=== PATIENT | female | born 1940 | race Caucasian/White ===

== ENCOUNTER → 2017-01-08 | Outpatient (CLI) | payer OTHER ==
[~2017-01-08] MED LIST: ASPCH81 PO; B SUPREME PO; CALCTAB5 PO; CHOL1CAP30 OG; CHOL400T5 PO; FLAXOIL3 PO; MULT-506 PO; NAPR-1169 PO; TRYP500C2 PO; VITA400C15 PO
--- NOTE | 2017-01-08 16:34 | MAMMOGRAPHY REPORT ---
BILATERAL DIGITAL SCREENING MAMMOGRAM TOMOSYNTHESIS WITH CAD: 01/08/2017 CLINICAL HISTORY: Asymptomatic. Personal history of left breast cancer status post breast conservat ion therapy. TECHNIQUE: Breast tomosynthesis in addition to standard 2D mammography was performed. Current study was also evaluated with a Computer Aided Detection (CAD) system. COMPARISON: Comparison is made to exams dated: 01/03/2016 mammogram, 12/31/2014 mammogram, 06/29/2014 ma mmogram, 12/25/2013 mammogram, 12/22/2013 mammogram, and 12/17/2012 mammogram - [facility]. BREAST COMPOSITION: The tissue of both breasts is heterogeneously dense, which may obscure small ma sses. FINDINGS: There is expected architectural distortion and benign rim calcification in the upper oute r posterior left breast, at the site of prior lumpectomy. No obvious suspicious mass, architectural distortion or cluster of new, suspicious microcalcifications is seen. IMPRESSION: ACR BI-RADS CATEGORY 1: NEGATIVE There is no mammographic evidence of malignancy. A 1 year screening mammogram is recommended. The p atient will receive written notification of the results. Approximately 10% of breast cancers are not detected with mammography. A negative mammographic repor t should not delay biopsy if a clinically suggestive mass is present. Yelena Villatoro M.D. ay/:01/08/2017 16:01:46 Counter Caser: Lisa MURRY(R)([place]), [facility] letter sent: Normal 1/2 BI-RADS Code: ACR BI-RADS Category 1: Negative
== END | disposition home or self-care (01) ==
LOC: C.MAMM 08:27
PROVIDERS: ATTEND Obstetrics & Gynecology
DX: Z12.31 Encounter for screening mammogram for malignant neoplasm of breast (principal); Z08 Encounter for follow-up examination after completed treatment for malignant neoplasm; Z85.3 Personal history of malignant neoplasm of breast

== ENCOUNTER → 2018-01-10 | Outpatient (CLI) | payer OTHER ==
--- NOTE | 2018-01-10 15:32 | MAMMOGRAPHY REPORT ---
BILATERAL DIGITAL SCREENING MAMMOGRAM TOMOSYNTHESIS WITH CAD: 01/10/2018 CLINICAL HISTORY: Asymptomatic. Personal history of breast cancer. TECHNIQUE: Breast tomosynthesis in addition to standard 2D mammography was performed. Current study was also evaluated with a Computer Aided Detection (CAD) system. COMPARISON: Comparison is made to exams dated: 01/08/2017 mammogram, 01/03/2016 mammogram, 12/31/2014 jordan mogram, 12/22/2013 mammogram, 12/17/2012 mammogram, and 12/12/2011 mammogram - [facility]. BREAST COMPOSITION: The tissue of both breasts is heterogeneously dense, which may obscure small mas ses. FINDINGS: No suspicious masses, calcifications, or areas of architectural distortion are noted in ei ther breast. There has been no significant interval change compared to prior exams. Again noted are postsurgical changes in the left upper outer quadrant from prior lumpectomy. Benign coarse dystrophi c calcifications are again noted at the lumpectomy bed. IMPRESSION: ACR BI-RADS CATEGORY 2: BENIGN There is no mammographic evidence of malignancy. A 1 year screening mammogram is recommended. The pa tient will receive written notification of the results. Approximately 10% of breast cancers are not detected with mammography. A negative mammographic report should not delay biopsy if a clinically suggestive mass is present. Lynette Pena M.D. /:01/10/2018 09:07:03 Wastewater Engineer: Gayle RAMOS)([place]), [facility] letter sent: Normal 1/2 BI-RADS Code: ACR BI-RADS Category 2: Benign
== END | disposition home or self-care (01) ==
LOC: C.MAMM 08:24
PROVIDERS: ATTEND Obstetrics & Gynecology
DX: Z12.31 Encounter for screening mammogram for malignant neoplasm of breast (principal); Z85.3 Personal history of malignant neoplasm of breast

== ENCOUNTER 2019-07-07 07:59 | Inpatient (IN) ==
--- NOTE | 2019-06-20 08:59 | PAT Medication Instructions ---
Medication Instructions Date of Service June 20, 2019 Home Medications B [place] 1 tab PO QAM Hemp Extract 5 mg PO BID Joint Flex Cream 1 dose TOPICAL UD PRN calcium carbonate-vitamin D3 [Calcium 600 + D(3)] 1 cap PO QAM cholecalciferol (vitamin D3) [Vitamin D3] 2,000 unit PO QAM flaxseed oil 1,000 mg PO QAM fluticasone furoate [Flonase Sensimist] 2 mcg INTRANASAL UD glucosamine-chondroitin [Osteo Bi-Flex] 1 tab PO QAM multivitamin 1 tab PO QAM naproxen [Naprosyn] 500 mg PO BID PRN naproxen sodium [Aleve] 220 mg PO QAM oxybutynin chloride [Ditropan XL] 2.5 mg PO BID ranitidine HCl 150 mg PO BID tryptophan 500 mg PO HS PRN turmeric root extract 500 mg PO QAM vitamin B complex 1 cap PO QAM Continue as directed fluticasone furoate [Flonase Sensimist] 2 mcg INTRANASAL UD ASK your surgeon for instructions naproxen [Naprosyn] 500 mg PO BID PRN naproxen sodium [Aleve] 220 mg PO QAM STOP taking 2 weeks before surgery (or as soon as possible if surgery is within 2 weeks) B [place] 1 tab PO QAM flaxseed oil 1,000 mg PO QAM glucosamine-chondroitin [Osteo Bi-Flex] 1 tab PO QAM tryptophan 500 mg PO HS PRN turmeric root extract 500 mg PO QAM STOP taking 24 hours before surgery Joint Flex Cream 1 dose TOPICAL UD PRN DO NOT take the morning of surgery Hemp Extract 5 mg PO BID calcium carbonate-vitamin D3 [Calcium 600 + D(3)] 1 cap PO QAM cholecalciferol (vitamin D3) [Vitamin D3] 2,000 unit PO QAM multivitamin 1 tab PO QAM oxybutynin chloride [Ditropan XL] 2.5 mg PO BID ranitidine HCl 150 mg PO BID vitamin B complex 1 cap PO QAM Take evening before surgery Hemp Extract 5 mg PO BID oxybutynin chloride [Ditropan XL] 2.5 mg PO BID ranitidine HCl 150 mg PO BID Other Notes If you have any questions please call us at [phone] or [phone] or [phone] or [phone]
--- NOTE | 2019-06-23 14:41 | Anesthesiology Consultation ---
Date of Service June 23, 2019 Assessment & Plan (1) Encounter for pre-operative examination: - Awaiting review preop testing (labs, EKG, CXR). - Awaiting surgeon-ordered PCP clearance scheduled 07/04 (Dr. Christopher). Chart Review Chart Review: Pending: Refer to Additional Notes / Consult section and Patient seen in Pre Admission Testing awaiting cardiology eval Teaching & Discussion Pre-Anesthesia Teaching/Discussion Notes: Instructed NPO after midnight before surgery,except medications with 15 cc of water. Medication instructions provided according to the PAT guidelines. History Surgery Operation Date: 07/07/19 14:10 Proposed Procedures p Left Anterior Total Hip Arthroplasty - Munir Hull, Height/Weight Height: 5 ft 2.5 in Weight: 70 kg Allergies Allergy/AdvReac Type Severity Reaction Status Date / Time codeine AdvReac Mild nausea Verified 06/23/19 14:45 Medications Home Medications Medication Instructions Recorded Confirmed Last Taken B Green 1 tab PO QAM 06/13/19 06/13/19 Unknown Hemp Extract 5 mg PO BID 06/13/19 06/13/19 Unknown Joint Flex Cream 1 dose TOPICAL UD PRN 06/13/19 06/13/19 Unknown calcium carbonate-vitamin D3 1 cap PO QAM 06/13/19 06/13/19 Unknown [Calcium 600 + D(3)] cholecalciferol (vitamin D3) 2,000 unit PO QAM 06/13/19 06/13/19 Unknown [Vitamin D3] flaxseed oil 1,000 mg PO QAM 06/13/19 06/13/19 Unknown fluticasone furoate [Flonase 2 mcg INTRANASAL UD 06/13/19 06/13/19 Unknown Sensimist] glucosamine-chondroitin [Osteo 1 tab PO QAM 06/13/19 06/13/19 Unknown Bi-Flex] multivitamin 1 tab PO QAM 06/13/19 06/13/19 Unknown naproxen [Naprosyn] 500 mg PO BID PRN 06/13/19 06/13/19 Unknown naproxen sodium [Aleve] 220 mg PO QAM 06/13/19 06/13/19 Unknown oxybutynin chloride [Ditropan XL] 2.5 mg PO BID 06/13/19 06/13/19 Unknown ranitidine HCl 150 mg PO BID 06/13/19 06/13/19 Unknown tryptophan 500 mg PO HS PRN 06/13/19 06/13/19 Unknown turmeric root extract 500 mg PO QAM 06/13/19 06/13/19 Unknown vitamin B complex 1 cap PO QAM 06/13/19 06/13/19 Unknown Past Medical History Medical History Arthritis Cancer LEFT [id number]/RADIATION/NO CHEMO-LEFT ARM RESTRICTION Degenerative disc disease LOWER BACK GERD (gastroesophageal reflux disease) controlled Exercise / Class Metabolic Activity II 4-5 Yardwork/Stairs/Walk up hill Past Surgical History Surgical History Exploratory laparotomy scar REMOVAL FIBROID TUMOR History of colonoscopy History of repair of rotator cuff RIGHT/LEFT Hx of lumpectomy LEFT BREAST 2009 Past Anesthesia History No Hx of Anesthesia Complications (except PONV) and No Family Hx of Anesthesia Complications History of PONV History of PONV () and Hx of Motion Sickness (mild) Social History Smoking Status: Former smoker Do You Dip or Chew Tobacco: No Smoking End Date: Quit age 40's (light use prior to quitting) Hx Alcohol Use: No Hx Substance Use: No Review of Systems Patient denies chest pain, shortness of breath, dyspnea on exertion, joint pain, reflux, cough, wheezing, palpitations. Physical Exam Vital Signs VITALS BP 151/87 P 91 TEMP 98.2 SP02 94%RA RESP 16 PHYSICAL Full neck and c-spine range of motion. Full TMJ range of motion. TMD 4 finger breaths Mallampati Score 1 Dentition: intact, upper front bridge, several crowns Lungs: clear throughout to auscultation Cardiac: regular rate and rhythm, no murmurs noted Spine: normal Carotid arteries: negative bruit Extremities: no edema Testing Laboratory Results 06/23/19 15:02 06/23/19 15:02 PT 9.8 Seconds (9.0-12.0) 06/23/19 15:02 INR 1.0 (0.9-1.1) 06/23/19 15:02 APTT 24.8 Seconds (21.0-31.0) 06/23/19 15:02 Hemoglobin A1c 6.3 % (4.5-5.6) H 10/28/19 15:02 Urine Color Dark Yellow 06/23/19 15:02 Urine Appearance Clear (Clear) 06/23/19 15:02 Urine pH 5.0 (4.5-7.5) 06/23/19 15:02 Ur Specific [place] 1.026 (1.000-1.030) 06/23/19 15:02 Urine Protein Negative (Negative) 06/23/19 15:02 Urine Glucose (UA) Negative (Negative) 06/23/19 15:02 Urine Ketones Negative (Negative) 06/23/19 15:02 Urine Nitrite Negative (Negative) 06/23/19 15:02 Ur Leukocyte Esterase Negative (Negative) 06/23/19 15:02 Blood Type B Positive 06/23/19 15:02 Antibody Screen NEGATIVE 06/23/19 15:02 Electrocardiogram Date: 06/23/19 Findings: + NSR @ (83), + RBBB and + T wave inversion (anterior and inferior leads) Chest X-Ray Date: 06/23/19 Findings: + NAD
[2019-06-23 15:40] LABS: Basophils # (auto) 0.02 K/uL (0-0.2); Basophils % (auto) 0.3 %; Eosinophils # (auto) 0.05 K/uL (0-0.5); Eosinophils % (auto) 0.7 %; Hematocrit (blood only) 46.6 % (37-47); Hemoglobin 15.7 g/dL (12.0-16.0); Immature Granulocytes # (auto) 0.04 K/uL (0.00-0.02); Immature Granulocytes % (auto) 0.5 %; Lymphocytes # (auto) 2.06 K/uL (1.2-3.4); Lymphocytes % (auto) 27.4 %; Mean Corpuscular Hemoglobin 31.2 pg (25-34); Mean Corpuscular Hgb Conc 33.7 g/dL (32-36); Mean Corpuscular Volume 92.6 fL (80-100); Mean Platelet Volume 8.9 fL (7.4-10.4); Monocytes # (auto) 0.66 K/uL (0.11-0.59); Monocytes % (auto) 8.8 %; Neutrophils # (auto) 4.68 K/uL (1.4-6.5); Neutrophils % (auto) 62.3 %; Platelet Count 272 K/uL (130-400); RDW Coefficient of Variation 13.8 % (11.5-14.5); RDW Standard Deviation 46.8 fL (36.4-46.3); Red Blood Count 5.03 M/uL (4.2-5.4); White Blood Count 7.51 K/uL (4.8-10.8)
--- NOTE | 2019-06-23 15:40 | XRay Report ---
XR chest Pre-admission PA/Lat CLINICAL HISTORY: pat preoperative evaluation COMPARISON STUDY: No previous studies for comparison. FINDINGS: The bones soft tissues and hemidiaphragms are normal. The cardiomediastinal silhouette is n ormal. The lungs are clear. The pulmonary vasculature is normal. Small benign calcified granuloma rig ht apex. IMPRESSION: No acute process. The above report was generated using voice recognition software. It may contain grammatical, syntax or spelling errors. Electronically signed by: Thaddeus Mireles M.D. 06/23/2019 3:39 PM
[2019-06-23 15:54] LABS: Appearance Urine Clear (Clear); Bilirubin Urine Negative (Negative); Blood Urine Negative (Negative); Color Urine Dark Yellow; Glucose Urine UA Negative (Negative); Ketones Urine Negative (Negative); Leukocyte Esterase Urine Negative (Negative); Nitrite Urine Negative (Negative); Protein Urine Negative (Negative); Specific Gravity Urine 1.026 (1.000-1.030); Urobilinogen Urine Negative (Negative)
[2019-06-23 15:55] LABS: Partial Thromboplastin Ratio 0.9; Partial Thromboplastin Time 24.8 Seconds (21.0-31.0); Prothrombin Time 9.8 Seconds (9.0-12.0)
[2019-06-23 16:00] LABS: Albumin Level 4.3 gm/dl (3.4-5.0); BUN Creatinine Ratio 19.9 (10-20); Calcium 9.3 mg/dl (8.5-10.1); Creatinine Clr Calc Pharmacy 58.1 ml/min; Est GFR (African American) 89.9; Est GFR (Non-African American) 77.6; Potassium 3.8 mmol/L (3.5-5.1)
[2019-06-24 05:36] LABS: Estimated Average Glucose 134 mg/dl; Hemoglobin A1C 6.3 % (4.5-5.6)
--- NOTE | 2019-07-06 14:57 | History & Physical Report ---
Date of Service July 06, 2019 Assessment & Plan (1) Degenerative joint disease of left hip: I have indicated the patient for left anterior total hip replacement. The risks, benefits and complications of surgery were explained to the patient which include but not limited to infection, acute blood loss, DVT/PE, injury to nerves, vessels, bone, soft tissue, arthrofibrosis, chronic pain, failure of the prosthesis, hip dislocation, leg length discrepancy, need for additional surgery, cardiac and pulmonary events and . The patient wished to proceed with surgery and informed consent was obtained at this time. We will plan for 81mg ASA BID post-operatively for DVT prophylaxis. Upon discharge the patient will be discharged home with home health services. Appropriate clearances by PCP were obtained. History of Present Illness Chief Complaint: Left hip pain/djd Primary Care Provider: Apolinar Shannon DO The patient is a 78 year old female who presents with complaints of severe left hip pain and DJD. The patient has failed outpatient conservative treatments to this point which included NSAIDs, IA corticosteroid injection, home exercise/walking program. The patient's pain and limited function have progressed to the point where they severely hinder their activities of daily living and they no longer tolerate exercise programs. They are requesting to proceed with total hip replacement surgery. Allergies Allergy/AdvReac Type Severity Reaction Status Date / Time codeine AdvReac Mild nausea Verified 07/07/19 08:41 Home Medications Home Medications Medication Instructions Recorded Confirmed Type calcium carbonate-vitamin D3 1 cap PO QAM 06/13/19 07/07/19 History [Calcium 600 + D(3)] fluticasone furoate [Flonase 2 mcg INTRANASAL UD 06/13/19 07/07/19 History Sensimist] glucosamine-chondroitin [Osteo 1 tab PO QAM 06/13/19 07/02/19 History Bi-Flex] multivitamin 1 tab PO QAM 06/13/19 07/07/19 History naproxen [Naprosyn] 500 mg PO BID PRN 06/13/19 07/07/19 History naproxen sodium [Aleve] 220 mg PO QAM 06/13/19 07/07/19 History oxybutynin chloride [Ditropan XL] 2.5 mg PO BID 06/13/19 07/07/19 History ranitidine HCl 150 mg PO BID 06/13/19 07/07/19 History turmeric root extract 500 mg PO QAM 06/13/19 07/02/19 History vitamin B complex 1 cap PO QAM 06/13/19 07/02/19 History loratadine 10 mg capsule 10 mg PO DAILY PRN cap 07/01/19 07/07/19 History vitamin E 400 unit capsule 400 units PO DAILY 07/01/19 07/01/19 History cholecalciferol (vitamin D3) 1,000 4,000 units PO QAM cap 07/02/19 07/07/19 History unit capsule cholecalciferol (vitamin D3) 400 800 units PO DAILY cap 07/02/19 07/07/19 History unit capsule flaxseed oil 1,000 mg capsule 1,200 mg PO QAM cap 07/02/19 07/07/19 History fluconazole 100 mg tablet 100 mg PO DAILY 07/02/19 07/07/19 History mecobalamin (vitamin B12) 1,000 1,000 mcg SL DAILY 07/02/19 07/07/19 History mcg disintegrating tablet,sublingual tizanidine 4 mg capsule 4 mg PO Q6H PRN cap 07/02/19 07/07/19 History Hemp Gummie 1 tab PO DAILY 07/07/19 07/07/19 History Past Med/Surg History Medical History Arthritis Cancer LEFT [id number]/RADIATION/NO CHEMO-LEFT ARM RESTRICTION Degenerative disc disease LOWER BACK GERD (gastroesophageal reflux disease) controlled Surgical History Exploratory laparotomy scar REMOVAL FIBROID TUMOR History of colonoscopy History of repair of rotator cuff RIGHT/LEFT Hx of lumpectomy LEFT BREAST 2008 Social History Preferred Language: Telugu Communication Ability: Effective Ruby Developer Required: No Beliefs That Will Affect Care: None Current Living Situation: Alone Other Information That Helps Us Care for You: No Feels Safe at Home: Yes Safety Concerns: Feels Safe At This Time Smoking Status: Former smoker Do You Dip or Chew Tobacco: No ; Smoking End Date: Quit age 40's (light use prior to quitting) ; Second Hand Exposure: No ; Hx Alcohol Use: No Hx Substance Use: No Review of Systems Review of Systems: All systems reviewed & are unremarkable except as noted in HPI & below Constitutional: as per Subjective / HPI Physical Exam Physical Exam: LLE NVSI +EHL/FHL/TA/GS SILT grossly, +2 DP pulse, compartments soft NT, limited painful ROM of the hip, antalgic gait. Constitutional: WD/WN, vitals as above Eyes: PERRL, conjunctivae normal, anicteric sclerae ENMT: external ear and nose normal, oropharynx normal Neck: trachea midline, no thyromegaly Respiratory: normal respiratory effort, lungs clear to auscultation Cardiovascular: RRR, no murmur, no edema Gastrointestinal (Abdomen): normal bowel sounds, soft, nontender, no hepatosplenomegaly Musculoskeletal: no cyanosis or clubbing, extremities motor strength 5/5 Skin: no rashes, warm and dry Neurologic: patellar DTR's 2+ bilat, sensation intact Psychiatric: A+Ox3, euthymic affect Lymphatic: no cervical or axillary lymphadenopathy Results & Data Diagnostic Findings Multiple views of the hip demonstrates severe DJD with complete loss of the joint space. +osteophytes, +sclerosis, +subchondral cysts.
[~2019-07-07 07:59] MED LIST changes: +ACETAMINOPHEN 500 MG TAB PO SCH; -ASPCH81 PO; -B SUPREME PO; +BUPIVACAINE 0.5 % 5 MG/1 ML PF 10ML VIAL ONE; -CALCTAB5 PO; +CEFAZOLIN 1000MG 1,000 MG/7.5 ML SYR IV SCH; -CHOL1CAP30 OG; -CHOL400T5 PO; +CeleBREX 200 MG CAP PO SCH; +FAMOTIDINE 20 MG TAB PO SCH; -FLAXOIL3 PO; +GABAPENTIN 300 MG CAP PO SCH; +LIDOCAINE HCL 2% 2 ML VIAL/AMP(20MG/ML) INFIL ONE; +LR 500ML BOLUS, THEN 15ML/HR IV SCH; +METOCLOPRAMIDE HCL 10 MG TABLET PO SCH; +MIDAZOLAM HCL 1 MG/ML 2ML VIAL ONE; -MULT-506 PO; -NAPR-1169 PO; +PROPOFOL IV EMULSION 10 MG/ML 20 ML VIAL IV ONE; +ROPIVACAINE 0.5% HCL/PF 150 MG, BUPIVACAINE 0.5% MPF 30 ML, EPINEPHrine 30MG/30ML (OR U... INSTIL SCH; +TRANEXAMIC ACID 1,000 MG **IV Intra-op IV SCH; +TRANEXAMIC ACID 1,000 MG **IV Pre-op IV SCH; -TRYP500C2 PO; -VITA400C15 PO; +dexAMETHasone 4 MG TAB PO SCH; +fentaNYL citrate 100 MCG/2 ML VIAL ONE
--- NOTE | 2019-07-07 09:11 | History & Physical Bridge Note ---
Date of Service July 07, 2019 History & Physical Bridge Note I have examined the patient, reviewed the History & Physical and in the interval since the performance of the History & Physical I have noted the following changes of clinical significance: no changes noted
[2019-07-07] MEDS ORDERED: BACITRACIN INJ 50,000 UNIT VIAL ONE (09:33)
[2019-07-07] MEDS ORDERED: ORTHO JOINT ANESTHETIC ONE (09:33)
[2019-07-07] MEDS ORDERED: ATROPINE SULFATE 0.1 MG/ML 10ML SYR IV PRN (10:02)
[2019-07-07] MEDS ORDERED: fentaNYL citrate 100 MCG/2 ML VIAL IV PRN (10:02)
[2019-07-07] MEDS ORDERED: ONDANSETRON INJ 2 MG/ML 2 ML VIAL IV PRN ×2 (10:02→14:02)
[2019-07-07] MEDS ORDERED: ePHEDrine sulfate 50 MG/ML AMP IV PRN (10:02)
[2019-07-07] MEDS ORDERED: ONDANSETRON INJ 2 MG/ML 2 ML VIAL ONE (12:08)
[2019-07-07] MEDS ORDERED: PROPOFOL IV EMULSION 10 MG/ML 20 ML VIAL IV ONE (12:34)
--- NOTE | 2019-07-07 12:36 | Post Operative Brief Note ---
Immediate Post Op Note v1 Date of Surgery July 07, 2019 Pre & Post Diagnosis Operation Date: 07/07/19 10:50 Pre-Op Diagnosis: LEFT HIP OSTEOARTHRITIS Post-Op Diagnosis: LEFT HIP OSTEOARTHRITIS I identified the patient and participated in the time-out.: Yes Procedure Operation Date: 07/07/19 10:50 Actual Procedures p Left Anterior Total Hip Arthroplasty(Left) - Munir Hull DO Surgeon Munir Hull DO Assistant Professor Of Business Darshan Singh Estimated Blood Loss 175 Findings Consistent with Post-Op Diagnosis Fluids 1400 cc LR Specimens femoral head Anesthesia Type Spinal MAC Complications none Disposition Disposition: Recovery Room Overlapping Procedure I was present for: the critical portions of procedure. I was immediately available: during the entire case. Back up surgeon: was not required during procedure.
--- NOTE | 2019-07-07 12:41 | Fluoroscopy Report ---
FL hip LT 1V CLINICAL HISTORY: LT ANTERIOR TOTAL HIP COMPARISON STUDY: None. FLUOROSCOPY TIME: 29 seconds.. FINDINGS: Single fluoroscopic spot digital left hip was submitted for review. There is evidence for l eft total hip arthroplasty. The majority of the prosthesis is not visualized. No fractures identified . The visualized hardware appears intact. IMPRESSION: Fluoroscopy provided for left total hip arthroplasty. Electronically signed by: Jb Carey M.D. 07/07/2019 12:40 PM
--- NOTE | 2019-07-07 12:55 | Operative Report ---
Post Operative Report Pre & Post Diagnosis Operation Date: 07/07/19 10:50 Pre-Op Diagnosis: LEFT HIP OSTEOARTHRITIS Post-Op Diagnosis: LEFT HIP OSTEOARTHRITIS I identified the patient and participated in the time-out.: Yes Procedure Operation Date: 07/07/19 10:50 Actual Procedures p Left Anterior Total Hip Arthroplasty(Left) - Munir Hull DO Surgeon Munir Hull DO Business Development Sales Executive Darshan Singh Estimated Blood Loss 175 Findings Consistent with Post-Op Diagnosis Fluids 1400 cc LR Specimens Femoral head Anesthesia Type Spinal MAC Complications none Disposition Disposition: Recovery Room Indications The patient is a 70-year-old female who presents with severe progressive left hip DJD who has failed outpatient conservative treatments. I indicated the patient for a anterior total hip replacement and the risks and benefits were explained in detail which include but not limited to infection, bleeding, blood clot, damage to surrounding bone, nerves, vessels, soft tissue, hip dislocation, failure of the prosthesis, leg length discrepancy, need for additional surgery and . The patient agreed to proceed with replacement of the hip and informed consent was obtained. Appropriate clearances were obtained. Description of Procedure COMPONENTS USED: [employer] hip system: Acetabulum size 50, fem ur size 4 high offset, femoral head 32+0, liner 3250, acetabular screw 25 mm x 1. DESCRIPTION OF PROCEDURE: Following satisfactory spinal anesthesia, the patient was placed supine on the OR table. The right leg was placed in the well leg felix and the left leg in the traction device. The left leg was prepared with ChloraPrep and draped sterilely. A surgical timeout was performed, patient i dentified and site prema verified. Appropriate antibiotics were given. A standard anterior approach in the interval between the sartorius and tensor muscles was performed. Dissection was carried down through subcutaneous tissues. Electrocautery was utilized for hemostasis. Circumflex femoral vessels were identified, tied and ligated. The anterior capsular fat pad was removed and the capsulotomy was performed revealing the arthritic femoral neck and head. A femoral neck cut was made with reciprocating saw and the bone fragments removed. The acetabular self-retraining retractor was placed. Acetabular reaming was completed under fluoroscopic guidance, a 50 shell was impacted into an anatomic position and secured with a dome screw. Local anesthetic was placed and following irrigation, the polyethylene liner was placed. The femur was placed into position of external rotation, extension and adduction. Femoral canal was prepared up to the size 4 high offset. Trial reduction with a +0 neck length head showed good soft tissue tension, leg lengths restored, and good fit and fill of the proximal canal using fluoroscopic landmarks. The hip was dislocated. The trial component was removed. The final implant was placed. The hip was irrigated with sterile saline solution and reduced. A Betadine soak was performed. After 3 minutes, the hip was once more irrigated with copious sterile saline solution with bacitracin. Gisell-incisional soft tissue was injected utilizing [place] [employer]ix which includes a combination of Ropivicaine 0.5% 150mg, Bupivicaine 0.5%/Epinephrine 1:200,000 30ml, Toradol 30mg, Dexamethasone 4mg, Ketamine 10mg, Clonidine 100mcg and NSS 30ml solution. The capsule was then closed with 1-0 Vicryl interrupted figure of eight sutures. The fascia was closed with a running suture of #1 Vicryl, the subcutaneous tissues with 2-0 Vicryl and the skin with a stable. Sterile dressings were applied which included Nicole incisional VAC. The patient tolerated the procedure well and was transported to PACU in stable condition. Due to the complex nature of the procedure, the entire surgery was performed with the operational assistance of Darshan Singh PA-C. The assistant store manager operations, under direct supervision, was involved in the actual performance of all aspects of the surgical procedure including patient positioning, hemostasis, tissue retraction, instrument management and wound closure. I attest to the content of the Intraoperative Record and any orders documented therein. Any exceptions are noted below.
[2019-07-07] MEDS ORDERED: CEFAZOLIN 250 MG/ML 1 GM VIAL ONE (13:27)
--- NOTE | 2019-07-07 13:40 | XRay Report ---
AP PELVIS, CROSSTABLE LATERAL LEFT HIP History: Left total hip arthroplasty. Degenerative arthritis. Postop. FINDINGS: The patient is status post a left total hip arthroplasty. The hardware is intact. No fractu re or dislocation. Skin kathrine and surgical drains are in place. IMPRESSION: Left total hip arthroplasty. No evidence for hardware complication. Electronically signed by: Jb Carey M.D. 07/07/2019 1:39 PM
--- NOTE | 2019-07-07 14:01 | Anesthesiology Progress Note ---
Date of Service July 07, 2019 Anesthesia Post Procedure Vital Signs Vital Signs: Temp Pulse Pulse Resp BP Pulse Ox 07/07/19 13:35 97.9 F 76 18 124/80 94 07/07/19 13:25 77 18 127/84 95 07/07/19 13:15 80 18 127/77 96 07/07/19 13:05 78 16 117/76 98 07/07/19 12:59 97.5 F L 87 12 116/76 96 07/07/19 08:54 98.1 F 78 20 161/96 H 94 Transfer of Care Handoff Completed per policy Notes Mental Status: alert / awake / arousable and participated in evaluation Patient Amnestic to Procedure: Yes Nausea / Vomiting: adequately controlled Pain: adequately controlled Airway Patency, RR, SpO2: stable & adequate BP & HR: stable & adequate Hydration State: stable & adequate Neuraxial Anesthesia: was administered and sensory block is resolving Anesthetic Complications: no major complications apparent and Pt Satisfied with anesthetic care
[2019-07-07] MEDS ORDERED: TRAMADOL HCL 50 MG TABLET PO PRN (14:02)
[2019-07-07] MEDS ORDERED: NALOXONE HCL 0.4 MG/1 ML VIAL/CARP IV PRN (14:02)
[2019-07-07] MEDS ORDERED: MAGNESIUM HYDROXIDE SUSP 30 ML UDC PO PRN (14:02)
[2019-07-07] MEDS ORDERED: BISACODYL 10 MG SUPP PR PRN (14:02)
[2019-07-07] MEDS ORDERED: LORATADINE 10 MG TAB PO PRN (14:02)
[2019-07-07] MEDS ORDERED: METOCLOPRAMIDE HCL INJ 5 MG/ML 2 ML VIAL IV PRN (14:02)
[2019-07-07] MEDS ORDERED: HYDROmorphone INJ 0.5 MG/0.5 ML SYR IV PRN (14:02)
[2019-07-07] MEDS: SODIUM CHLORIDE 0.9% 1000ML 1,000 ML IV SCH (14:32)
[2019-07-07] MEDS: ACETAMINOPHEN 500 MG TAB PO SCH ×2 (14:38→21:19)
[2019-07-07] MEDS: KETOROLAC TROMETHAMINE 15 MG/ML VIAL IV SCH ×2 (16:24→21:19)
[2019-07-07] MEDS ORDERED: FLUCONAZOLE 100 MG TAB PO ONE (18:00)
--- NOTE | 2019-07-07 18:04 | Orthopedic Progress Note ---
Date of Service July 07, 2019 Assessment & Plan (1) Degenerative joint disease of left hip: s/p L anterior KALI -ancef x 24 -DVT ppx: SCDs, TEDs, 81mg ASA BID -WBAT LLE -PT/OT -PO XR demonstrates well aligned well fixed total hip prothesis, no fx/dislocation -am labs -DC planning Subjective Post Operative Progress Note Patient seen sitting up in bed, comfortable, denies complaints, pain well controlled, no acute issues. Denies F/C/N/V/SOP/CP. Review of Systems Review of Systems: All systems reviewed & are unremarkable except as noted in HPI & below Constitutional: as per Subjective / HPI Physical Exam Physical Exam: LLE NVSI +EHL/FHL/TA/GS SILT grossly, +2 DP pulse, compartments soft NT, dressing cdi. Constitutional: WD/WN, vitals as above Results & Data Vital Signs (Past 12 Hours) Vital Signs Temp Pulse Pulse Pulse Resp BP Pulse Ox 07/07/19 16:55 36.4 C L 78 16 130/81 95 07/07/19 16:10 36.5 C 75 17 159/92 H 97 07/07/19 14:57 36.4 C L 74 17 138/85 98 07/07/19 14:02 16 137/84 91 07/07/19 13:50 36.5 C 76 18 134/83 93 07/07/19 13:35 36.6 C 76 18 124/80 94 07/07/19 13:25 77 18 127/84 95 07/07/19 13:15 80 18 127/77 96 07/07/19 13:05 78 16 117/76 98 07/07/19 12:59 36.4 C L 87 12 116/76 96 07/07/19 08:54 36.7 C 78 20 161/96 H 94
[2019-07-07] MEDS: CEFAZOLIN 1000MG 1,000 MG/7.5 ML SYR IV SCH (18:36)
[2019-07-07] MEDS ORDERED: SENNA 8.6 MG TAB PO SCH (21:00)
[2019-07-07] MEDS: DOCUSATE SODIUM 100 MG CAP PO SCH (21:01)
[2019-07-07] MEDS: OXYBUTYNIN CHLORIDE XL 5 MG TABCR PO SCH (21:02)
[2019-07-08] MEDS: SODIUM CHLORIDE 0.9% 1000ML 1,000 ML IV SCH (00:36)
[2019-07-08] MEDS: CEFAZOLIN 1000MG 1,000 MG/7.5 ML SYR IV SCH (03:30)
[2019-07-08] MEDS: ACETAMINOPHEN 500 MG TAB PO SCH ×2 (05:20→13:08)
[2019-07-08] MEDS: KETOROLAC TROMETHAMINE 15 MG/ML VIAL IV SCH ×2 (05:21→10:07)
[2019-07-08 05:38] LABS: Hematocrit (blood only) 40.2 % (37-47); Hemoglobin 13.3 g/dL (12.0-16.0); Immature Granulocytes # (auto) 0.05 K/uL (0.00-0.02); Immature Granulocytes % (auto) 0.4 %; Lymphocytes # (auto) 0.95 K/uL (1.2-3.4); Lymphocytes % (auto) 7.5 %; Mean Corpuscular Hemoglobin 30.9 pg (25-34); Mean Corpuscular Hgb Conc 33.1 g/dL (32-36); Mean Corpuscular Volume 93.3 fL (80-100); Mean Platelet Volume 9.1 fL (7.4-10.4); Monocytes # (auto) 0.91 K/uL (0.11-0.59); Monocytes % (auto) 7.1 %; Neutrophils # (auto) 10.82 K/uL (1.4-6.5); Platelet Count 237 K/uL (130-400); RDW Coefficient of Variation 13.4 % (11.5-14.5); RDW Standard Deviation 46.4 fL (36.4-46.3); Red Blood Count 4.31 M/uL (4.2-5.4); White Blood Count 12.73 K/uL (4.8-10.8)
[2019-07-08 05:57] LABS: BUN Creatinine Ratio 18.8 (10-20); Calcium 8.5 mg/dl (8.5-10.1); Creatinine Clr Calc Pharmacy 59.7 ml/min; Est GFR (African American) 94.6; Est GFR (Non-African American) 81.6; Potassium 3.9 mmol/L (3.5-5.1)
[2019-07-08] MEDS: OXYBUTYNIN CHLORIDE XL 5 MG TABCR PO SCH (08:25)
[2019-07-08] MEDS: DOCUSATE SODIUM 100 MG CAP PO SCH (08:25)
[2019-07-08] MEDS ORDERED: FLUTICASONE PROPIONATE NA SPR 16 GM BTL NAE SCH (09:00)
[2019-07-08] MEDS ORDERED: ASPIRIN 81 MG ECTAB PO SCH (09:00)
[2019-07-08] MEDS ORDERED: MULTIVITAMIN TAB PO SCH (09:00)
--- NOTE | 2019-07-08 10:13 | Orthopedic Progress Note ---
Date of Service July 08, 2019 Assessment & Plan (1) Degenerative joint disease of left hip: s/p L anterior KALI POD#1 -ancef x 24 -DVT ppx: SCDs, TEDs, 81mg ASA BID -WBAT LLE -PT/OT -PO XR demonstrates well aligned well fixed total hip prothesis, no fx/dislocation -am labs - hgb 13.3 -DC planning - home with HH Subjective Post Operative Progress Note Patient seen sitting in chair at bedside, comfortable, denies complaints, pain well controlled, no acute issues. Denies F/C/N/V/SOP/CP. Review of Systems Review of Systems: All systems reviewed & are unremarkable except as noted in HPI & below Constitutional: as per Subjective / HPI Physical Exam Physical Exam: LLE NVSI +EHL/FHL/TA/GS SILT grossly, +2 DP pulse, compartments soft NT, dressing cdi. Constitutional: WD/WN, vitals as above Results & Data Vital Signs (Past 12 Hours) Vital Signs Temp Pulse Resp BP Pulse Ox 07/08/19 07:05 36.6 C 92 H 17 116/74 92 07/08/19 03:40 36.6 C 66 17 121/77 93 07/07/19 23:26 36.8 C 68 17 120/73 92 Laboratory Results 07/08/19 07/08/19 Range/Units 04:48 04:48 WBC 12.73 H (4.8-10.8) K/uL RBC 4.31 (4.2-5.4) M/uL Hgb 13.3 (12.0-16.0) g/dL Hct 40.2 (37-47) % MCV 93.3 (80-100) fL MCH 30.9 (25-34) pg MCHC 33.1 (32-36) g/dL RDW Std Deviation 46.4 H (36.4-46.3) fL RDW Coeff of Katherine 13.4 (11.5-14.5) % Plt Count 237 (130-400) K/uL MPV 9.1 (7.4-10.4) fL Immature Gran % (Auto) 0.4 % Neut % (Auto) 85.0 % Lymph % (Auto) 7.5 % [place] % (Auto) 7.1 % Eos % (Auto) 0.0 % Baso % (Auto) 0.0 % Immature Gran # (Auto) 0.05 H (0.00-0.02) K/uL Neut # (Auto) 10.82 H (1.4-6.5) K/uL Lymph # (Auto) 0.95 L (1.2-3.4) K/uL [place] # (Auto) 0.91 H (0.11-0.59) K/uL Eos # (Auto) 0.00 (0-0.5) K/uL Baso # (Auto) 0.00 (0-0.2) K/uL Sodium 142 (136-145) mmol/L Potassium 3.9 (3.5-5.1) mmol/L Chloride 111 H (98-107) mmol/L Carbon Dioxide 23 (21-32) mmol/L Anion Gap 8.0 (3-11) BUN 13 (7-18) mg/dl Creatinine 0.71 (0.6-1.2) mg/dl Est Cr Clr Drug Dosing 59.7 ml/min Est GFR ( Amer) 94.6 Est GFR (Non-Af Amer) 81.6 BUN/Creatinine Ratio 18.8 (10-20) Glucose 133 H (70-99) mg/dl Calcium 8.5 (8.5-10.1) mg/dl
[2019-07-08] MEDS ORDERED: CeleBREX 200 MG CAP PO SCH (21:00)
--- NOTE | 2019-07-09 21:51 | Discharge Summary ---
Date of Service July 09, 2019 Admission HPI Per Admitting Provider The patient is a 78 year old female who presents with complaints of severe left hip pain and DJD. The patient has failed outpatient conservative treatments to this point which included NSAIDs, IA corticosteroid injection, home exercise/walking program. The patient's pain and limited function have progressed to the point where they severely hinder their activities of daily living and they no longer tolerate exercise programs. They are requesting to proceed with total hip replacement surgery. Principal Diagnosis Left anterior total hip replacement Discharge Exam LLE NVSI +EHL/FHL/TA/GS SILT grossly, +2 DP pulse, compartments soft NT, dressing cdi. Constitutional WD/WN, vitals as above Discharge Data Allergies Allergy/AdvReac Type Severity Reaction Status Date / Time codeine AdvReac Mild nausea Verified 07/07/19 08:41 Consultations 07/08/19 08:00 Consult Case Management - Discharge Planning Routine Procedures Performed Operation Date: 07/07/19 10:50 Actual Procedures p Left Anterior Total Hip Arthroplasty(Left) - Munir Hull DO Ordered Studies 07/07/19 10:50 FL fluoroscopy <1hr Routine FL hip LT 1V Routine Hospital Course (1) Degenerative joint disease of left hip: The patient is a 78 -year-old female who presents with long standing history of severe left hip DJD and failed outpatient conservative treatments. The patient's symptoms have progressed to the point where it has been difficult to perform even normal activities of daily living. I indicated the patient for a left anterior total hip arthroplasty, the risks, benefits and complications of the procedure include but not limited to infection, bleeding, damage to bone, nerves, vessels, surrounding soft tissue, may develop blood clots, loss of function, leg length discrepancy, dislocation, failure of the components, loosening of the components, the need for additional surgery and . The patient wished to proceed with surgery at this time and informed consent was obtained. Hospital Course: On 07/07/19 the patient was taken to the operating room, adequate anesthesia administered and underwent a left anterior total hip arthroplasty. The patient tolerated the procedure well and was taken to the PACU in stable condition. Post-operatively the patient was started on a DVT ppx medication and given appropriate IV antibiotics. Consults were placed to physical therapy, occupational therapy and case management. On POD#1, the patient did well overnight and their pain was well controlled. Labs were drawn and the Hgb was 13.3. The patient progressed well with PT. Dressings were changed at this time and the incision was clean, dry and intact. The patients hospital stay was relatively uneventful and they were deemed stable by the orthopedic team and consultants to be discharged home with HH on 07/08/19. Discharge Instructions: Upon discharge the patient may weight bear as tolerates through their operative extremity. They were instructed to keep the incision clean and dry at all times. The patient may shower but should not submerge the incision, avoid bathing, pools and hot tubes. The patient was given a script for pain medication and should take as instructed. The patient was given a script for DVT ppx 81mg ASA BID and should take as directed. The patient was instructed to not drive or travel for long distances until cleared to do so. If the patient develops any symptoms of fevers, chills, nausea, vomiting, increased redness, swelling, pain or drainage from the surgical site, they should notify the office and/or proceed to the nearest emergency room. The patient should follow up in 10-14 days after surgery for their routine post-operative follow-up appointment and should call the office to confirm the date and time. s/p L anterior KALI POD#1 -ancef x 24 -DVT ppx: SCDs, TEDs, 81mg ASA BID -WBAT LLE -PT/OT -PO XR demonstrates well aligned well fixed total hip prothesis, no fx/dislocation -am labs - hgb 13.3 -DC planning - home with HH Total Time Total Time Spent Total Time Spent (In Minutes): 30 minutes Total Time Includes: Examination of the Patient, Discharge Planning, Medication Reconciliation and Communication With Other Providers Discharge Plan Discharge Items Patient Disposition: Home - Home Health Services Reason For Visit: LEFT HIP OSTEOARTHRITIS Discharge Diagnosis: Left anterior total hip replacement Condition on Discharge: Good Activity: Per Instructions section Lifting: Wait until after follow-up appointment Bathing: Keep incision dry Bathing Comment: No bathing, pools or hot tubs. Sexual Activity: Wait until after follow-up appointment Exercise/Sports: Wait until after follow-up appointment Driving/Machine Use: No driving Weightbearing: Full weightbearing Non-emergency contact: Primary Care Provider and Surgeon Call non-emergency contact if: you have any medication questions, your symptoms worsen, your pain is not controlled, your pain is worsening, your pain is unusual for you, your pain is concerning for you, you have a fever, your temperature is above 101, your wound has increased redness, your wound has increased drainage and your wound pain has increased Follow-up/Referrals: Apolinar Shannon, [Primary Care Provider] - Diet: Regular Addtl Attending Provider Instructions: ACTIVITY RECOMMENDATIONS: SELF CARE INSTRUCTIONS AFTER TOTAL HIP REPLACEMENT : Direct Anterior Approach Until the incision and soft tissues around your hip have healed, there is a possibility that the hip prosthesis could dislocate. A. Hip flexion ( Up & Down out of chair or steps ) may be difficult. This is normal. B. Numbness in front of the thigh is also normal for a few weeks. C. Use hand rails when walking on stairs. D. Wear low heeled shoes with non-slip soles. E. Be sure that your floors are free of things that could trip you - throw rugs, electrical cords, small objects. Avoid wet and waxed floors, especially with crutches and canes. F. Try to walk several times a day with rest periods between. G. Continue with all the exercises taught to you in the hospital. Again, make walking a part of your daily routine. SPECIAL CARE INSTRUCTIONS: VERY IMPORTANT TO READ AND REVIEW A. You may still be at risk for phlebitis and blood clots. 1. Wear surgical stockings (CHA hose) for 2 weeks after surgery to improve circulation and reduce swelling. 2. Take Aspirin 81mg twice daily for 4 weeks or as directed by your doctor. This is your blood thinner. 3. High risk patients may be prescribed a stronger blood thinner if necessary. 4. If you are on Coumadin normally, your family doctor/drop shipment clerk should monitor your blood work. Expect a phone call the day of or the day after bloodwork is drawn to adjust your dosage. B. You must take antibiotics before having dental work, bladder, bowel and other surgery. Your doctor will provide you with a permanent card to carry describing precautions. C. Call [facility] if you have a fever, redness or swelling around the incision, cloudy drainage from incision, or sudden increase in pain in your hip, not relieved by your regular pain medication. D. Please call the office at if you have any concerns or questions about your operation or recovery. * YOU MAY SHOWER, NO TUB BATHS UNTIL CLEARED BY YOUR DOCTOR. - Keep an extra close eye on the top portion of your incision. Be sure to keep clean & dry. * WEAR CHA HOSE 20 HOURS PER DAY FOR 2 WEEKS. * YOU MAY PROGRESS FROM A WALKER, TO A CANE, TO INDEPENDENT AT YOUR OWN PACE. * MOST PATIENTS WILL HAVE HOME NURSING FOR THERAPY. IF YOU DECIDE TO DO OUTPATIENT PHYSICAL THERAPY, PLEASE SCHEDULE THIS 3 TIMES PER WEEK. *PREVENA incisional vac is a special dressing covering your incision. This dressing provides a sterile dry environment while you are healing. The dressing is to be left in place for 7 days post-operatively. Your home nurse or surgeon will remove. If you develop any redness or blisters or have any questions notify your surgeon immediately. FOLLOW UP VISIT: If appointment is not already scheduled: Please call [facility] to make a follow-up appointment for 2 weeks after your surgery at . Pending Studies at Discharge: No Stand-Alone Forms: [facility], Opioid Pain Management, Smoking Cessation Medications and DC Order Prescriptions: New tramadol 50 mg tablet 50 mg PO Q6H MDD 6 tabs PRN (Reason: pain) Qty: 30 RF: 0 acetaminophen 500 mg capsule 1,000 mg PO Q8H PRN (Reason: fever or pain) Qty: 90 RF: 0 aspirin [Aspirin Low Dose] 81 mg tablet,delayed release (DR/EC) 81 mg PO BID Qty: 56 RF: 0 celecoxib [Celebrex] 200 mg capsule 200 mg PO BID PRN (Reason: pain/inflammation) Qty: 28 RF: 0 Senna-Extra 17.2 mg tablet 17.2 mg PO HS PRN (Reason: constipation) Qty: 28 RF: 0 Continued loratadine 10 mg capsule 10 mg PO DAILY PRN (Reason: Allergy Symptoms) RF: 0 vitamin E 400 unit capsule 400 units PO DAILY RF: 0 tizanidine 4 mg capsule 4 mg PO Q6H PRN (Reason: Muscle Spasm) RF: 0 mecobalamin (vitamin B12) 1,000 mcg tablet,disintegrating 1,000 mcg SL DAILY RF: 0 fluconazole 100 mg tablet 100 mg PO DAILY RF: 0 cholecalciferol (vitamin D3) 400 unit capsule 800 units PO DAILY RF: 0 multivitamin Tablet 1 tab PO QAM RF: 0 vitamin B complex Capsule 1 cap PO QAM RF: 0 oxybutynin chloride [Ditropan XL] 5 mg Tablet Extended Release 24hr 2.5 mg PO BID RF: 0 ranitidine HCl 150 mg Capsule 150 mg PO BID RF: 0 glucosamine-chondroitin [Osteo Bi-Flex] 250-200 mg Tablet 1 tab PO QAM RF: 0 Calcium 600 + D(3) 600 mg calcium- 200 unit Capsule 1 cap PO QAM RF: 0 Flonase Sensimist 27.5 mcg/actuation [place],Suspension 2 mcg intranasal UD RF: 0 cholecalciferol (vitamin D3) [Vitamin D3] 1,000 unit capsule 4,000 units PO QAM RF: 0 flaxseed oil 1,000 mg capsule 1,200 mg PO QAM RF: 0 Hemp Gummie 1 tab PO DAILY RF: 0 Discontinued naproxen [Naprosyn] 500 mg Tablet 500 mg PO BID PRN (Reason: Pain) RF: 0 naproxen sodium [Aleve] 220 mg Capsule 220 mg PO QAM RF: 0 turmeric root extract 500 mg Capsule 500 mg PO QAM RF: 0 Discharge Orders: Discharge Order (Routine); Ordered 07/08/19 Ordered By: Munir James/Other Patient Handouts: Prediabetes, A1C Admission Data Admit Date/Time: 07/07/19 13:15 Attending Provider: Munir Hull Admit Provider: Munir Hull Primary Care Provider: Apolinar Shannon Other Interventions: Discharge Summary Assessment (RN) Last Done: 07/08/19 14:12 DC Date/Time DO NOT enter until pt leaves facility: 07/08/19 14:52
== END 2019-07-08 14:52 | disposition home health service (06) | DRG 470 ==
LOC: ASU 07:59 → 3E 13:15

== ENCOUNTER 2023-12-06 09:00 | Observation (INO) ==
--- NOTE | 2023-10-31 13:49 | PAT Medication Instructions ---
Medication Instructions Date of Service October 31, 2023 Home Medications Medication Instructions Recorded aluminum chloride 20 % topical 1 applic topical DAILY #37.5 mL 09/25/23 solution (Drysol) ketoconazole 2 % topical cream 1 applic topical BID #30 grams 09/25/23 clonidine HCl 0.2 mg tablet 0.2 mg PO DAILY #90 tabs 10/15/23 fluticasone furoate 27.5 mcg/actuation nasal spray,suspension (Flonase Sensimist) 2 mcg intranasal QAM flaxseed oil 1,000 mg capsule 1,200 mg PO QAM B-complex with vitamin C (Super B/C capsule) 1 cap PO DAILY sodium bicarbonate-sodium chloride-neti pot nasal rinse with packet (Cook Saline Nasal Neti Rinse with packet) 1 ea .Route QAM celecoxib 100 mg capsule 100 mg PO BID PRN Hemp Gummie 1 tab PO DAILY PRN benzonatate 100 mg capsule 100 mg PO TID PRN famotidine 20 mg tablet 20 mg PO BID glucosamine-chondroitin 250 mg-200 mg tablet (Osteo Bi-Flex) 2 tab PO QAM multivitamin 2 tab PO DAILY aluminum chloride 20 % topical solution (Drysol) 1 applic topical DAILY ketoconazole 2 % topical cream 1 applic topical BID clonidine HCl 0.2 mg tablet 0.2 mg PO DAILY Joint Flex 1 dose topical DAILY PRN naproxen sodium 220 mg tablet (Aleve) 220 mg PO BID PRN Continue as directed clonidine HCl 0.2 mg tablet 0.2 mg PO DAILY ASK your surgeon for instructions celecoxib 100 mg capsule 100 mg PO BID PRN naproxen sodium 220 mg tablet (Aleve) 220 mg PO BID PRN STOP taking 2 weeks before surgery (or as soon as possible if surgery is within 2 weeks) flaxseed oil 1,000 mg capsule 1,200 mg PO QAM glucosamine-chondroitin 250 mg-200 mg tablet (Osteo Bi-Flex) 2 tab PO QAM Joint Flex 1 dose topical DAILY PRN STOP taking 24 hours before surgery aluminum chloride 20 % topical solution (Drysol) 1 applic topical DAILY ketoconazole 2 % topical cream 1 applic topical BID DO NOT take the morning of surgery B-complex with vitamin C (Super B/C capsule) 1 cap PO DAILY Hemp Gummie 1 tab PO DAILY PRN benzonatate 100 mg capsule 100 mg PO TID PRN multivitamin 2 tab PO DAILY Take morning of surgery With a small sip of water, OTHERWISE NOTHING TO EAT OR DRINK AFTER MIDNIGHT: fluticasone furoate 27.5 mcg/actuation nasal spray,suspension (Flonase Sensimist) 2 mcg intranasal QAM sodium bicarbonate-sodium chloride-neti pot nasal rinse with packet (Cook Saline Nasal Neti Rinse with packet) 1 ea .Route QAM famotidine 20 mg tablet 20 mg PO BID Take evening before surgery benzonatate 100 mg capsule 100 mg PO TID PRN(if needed) famotidine 20 mg tablet 20 mg PO BID Other Notes If you have any questions please call us at [phone] or [phone] or [phone] or [phone]
--- NOTE | 2023-11-07 09:11 | Anesthesiology Consultation ---
Date of Service November 07, 2023 Assessment & Plan (1) Encounter for pre-operative examination: - Check BSG AM DOS - Infectious disease screening: Per assessment on 11/07/23: No known infectious disease contacts or current infectious disease symptoms. No noted recent Covid positive test result. - Hx LUE limb restriction: Patient states that she was told the limb restriction is not necessary anymore d/t length of time since lumpectomy with SLND (done 2008). - Outpatient joint assessment: Pt currently scheduled for inpatient pathway. If surgeon requests review for outpatient joint pathway, patient is not recommended candidate for outpatient joint program from anesthesia standpoint based upon available information. Chart Review Chart Review: Acceptable Risk for Surgery (pending evaluation DOS) and Patient seen in Pre Admission Testing Teaching & Discussion Pre-Anesthesia Teaching/Discussion Notes: Instructed NPO after midnight before surgery,except medications with 15 cc of water. Medication instructions provided according to the PAT guidelines. History Surgery Operation Date: 12/06/23 11:00 Proposed Procedures p Right Total Shoulder Arthroplasty Reverse Arthroplasty - Isma De La Garza MD Height/Weight Height: 5 ft 1.5 in Weight: 68.9 kg Allergies Allergy/AdvReac Type Severity Reaction Status Date / Time Drysol Allergy Itching, Uncoded 11/07/23 09:14 redness Medications Home Medications Medication Instructions Recorded Confirmed Last Taken fluticasone furoate 27.5 2 mcg intranasal QAM 06/13/19 10/31/23 07/06/19 08:00 mcg/actuation nasal spray,suspension (Flonase Sensimist) flaxseed oil 1,000 mg capsule 1,200 mg PO QAM 07/02/19 10/31/23 1 Week Ago ~06/30/19 B-complex with vitamin C (Super 1 cap PO DAILY 10/24/22 10/31/23 Unknown B/C capsule) sodium bicarbonate-sodium 1 ea .Route QAM 10/24/22 10/31/23 Unknown chloride-neti pot nasal rinse with packet ([place] Saline Nasal Neti Rinse with packet) celecoxib 100 mg capsule 100 mg PO BID PRN Pain 11/21/22 10/31/23 Unknown Hemp Gummie 1 tab PO DAILY PRN Pain 05/22/23 10/31/23 Unknown benzonatate 100 mg capsule 100 mg PO TID PRN Cough 05/22/23 10/31/23 Unknown famotidine 20 mg tablet 20 mg PO BID 05/22/23 10/31/23 Unknown glucosamine-chondroitin 250 mg-200 2 tab PO QAM 05/22/23 10/31/23 Unknown mg tablet (Osteo Bi-Flex) multivitamin 2 tab PO DAILY 05/22/23 10/31/23 Unknown aluminum chloride 20 % topical 1 applic topical DAILY #37.5 mL 09/25/23 10/31/23 Unknown solution (Drysol) ketoconazole 2 % topical cream 1 applic topical BID #30 grams 09/25/23 10/31/23 Unknown clonidine HCl 0.2 mg tablet 0.2 mg PO DAILY #90 tabs 10/15/23 10/31/23 Unknown Joint Flex 1 dose topical DAILY PRN Pain 10/31/23 10/31/23 Unknown naproxen sodium 220 mg tablet 220 mg PO BID PRN Pain 10/31/23 10/31/23 Unknown (Aleve) Past Medical History Medical History Allergic rhinitis Arthritis Breast cancer Infiltrating ductal carcinoma of the left breast lower outer quadrant (2008) Status post left lumpectomy and SLNB status post completion of radiation therapy 2008 Chronic sinusitis Degenerative disc disease Lumbar GERD (gastroesophageal reflux disease) controlled HTN (hypertension) Per records, patient denies Hyperhidrosis Reason for clonidine per patient Type 2 diabetes mellitus Exercise / Class Metabolic Activity II 4-5 Yardwork/Stairs/Walk up hill Past Surgical History Surgical History Exploratory laparotomy scar Fibroid tumor removal History of carpal tunnel release History of colonoscopy History of esophagogastroduodenoscopy (EGD) History of left hip replacement Left anterior KALI (07/07/19): SAB at [facility] History of lumpectomy of left breast History of repair of rotator cuff R/L, debridement History of tonsillectomy and adenoidectomy Hx of bilateral cataract extraction Hx of lumpectomy Left breast, 2008 Slow to wake up after anesthesia Past Anesthesia History No Family Hx of Anesthesia Complications and Other (Slow to wake) History of PONV History of PONV (Dry heaves) and Hx of Motion Sickness (Situational) Social History Smoking Status: Never smoker Do You Dip or Chew Tobacco: No Hx Alcohol Use: No Hx Substance Use: No substance use type: does not use Review of Systems Recurrent sinusitis s/p recent completion of doxycycline course for sinusitis- patient states at PAT visit 11/07/23 that symptoms resolved/currently feeling well. Patient denies chest pain, shortness of breath, dyspnea on exertion, fever, chills, cough, wheezing, palpitations. Physical Exam Vital Signs BP 145/89 P 74 TEMP 98.2 SP02 95%RA RESP 18 Physical Full cervical extension range of motion. Full TMJ range of motion. TMD 3 finger breaths Mallampati Score 1 Dentition: intact, + several crowns, +bridge (including upper front) Lungs: clear throughout to auscultation Cardiac: regular rate and rhythm, no murmurs noted Spine: normal Carotid arteries: negative bruit Extremities: no LE edema Lab Results Anesthesia Preop Results Results Anesthesia Widget: PT 10.5 Seconds (9.0-12.0) 11/07/23 PTT 26 Seconds (21-31) 11/07/23 INR 1.0 (0.9-1.1) 11/07/23 Urine Color Dark Yellow 11/07/23 Urine Appearance Clear (Clear) 11/07/23 Urine pH 5.5 (4.5-7.5) 11/07/23 Urine Specific [place] 1.018 (1.000-1.030) 11/07/23 Urine Protein Negative (Negative) 11/07/23 Urine Glucose (UA) Negative (Negative) 11/07/23 Urine Ketones Negative (Negative) 11/07/23 Urine Blood Negative (Negative) 11/07/23 Urine Nitrite Negative (Negative) 11/07/23 Urine Bilirubin Negative (Negative) 11/07/23 Urine Urobilinogen Negative (Negative) 11/07/23 Urine Leukocyte Esterase Negative (Negative) 11/07/23 Blood Type B Positive 11/07/23 Antibody Screen NEGATIVE 11/07/23 Testing Laboratory Results 10/09/23 WBC 8.71 H/H 16.8/50.6 PLATELETS 324 SODIUM 144 POTASSIUM 4.2 CHLORIDE 107 CO2 26 BUN 18 CREATININE 0.8 GLUCOSE 87 HGBA1C 6.5% Electrocardiogram Date: 11/07/23 Normal sinus rhythm at 67 bpm. Low voltage QRS. RBBB. T wave abnormality, consider inferolateral ischemia. No significant change compared to 06/23/2019 per leasing specialist comparison. [facility] [place] cardiology visit 07/02/19: Seen in preop prior to Left anterior KALI at [facility] d/t abnormal preop EKG findings > "presents today for a Preoperative Cardiac Evaluation due to Abnormal Preop EKG 06/23/2019 showing a New RBBB and Diffuse T-Wave Inversions. Patient is scheduled to undergo a left total hip arthroplasty with Dr. Hull on 07/07/2019 at [facility]. Patient has been physically active throughout her lifetime and has never experienced any limiting cardiopulmonary symptoms or recent changes in her exertional tolerance. Although she reports having rheumatic fever as a child -- it does not appear to have affected her heart valves. Her RBBB is acquired as it was not present in 2010 -- and it may have been caused by her prior radiation treatments for breast cancer. She does not appear to have undue any underlying sleep apnea or significant lung disease and her right ventricular function is completely normal. Suspect that her ST and T-wave abnormalities are the result of her underlying RBBB and having a mild degree of LVH.. Based on her functional status without limiting cardiopulmonary symptoms, normal biventricular systolic function on her Echocardiogram today, and her minimal cardiac risk factors -- patient is a low to intermediate cardiac risk for her upcoming orthopedic surgical procedure. There is no need for further cardiac workup at this time... We discussed her EKG findings at length, and she was given illustrations regarding normal cardiac conduction and was shown what a RBBB is. Patient verbalized understanding of this discussion. Patient is to call if any problems, questions, or if any cardiac issues arise in the future. She may return to the office as needed." Chest X-Ray Date: 11/07/23 Findings: + NAD Echocardiogram Date: 07/02/19 EF 65-70%. LV wall motion is normal. Mild concentric LVH. No significant valvular disease. Grade 1 diastolic dysfunction.
--- NOTE | 2023-11-23 16:34 | History & Physical Report ---
Date of Service November 23, 2023 Assessment & Plan (1) Rotator cuff tear, right: Plan: Chronic non repairable rotator cuff tear. Plan is to proceed with reverse total shoulder replacement. Typical risks of reverse replacement including instability dislocation nerve or vessel injury or blood clot was discussed. History of Present Illness Chief Complaint: 82-year-old female with chronic right shoulder pain history of previous right shoulder arthroscopy and rotator cuff repair with failed rotator cuff repair. Primary Care Provider: Karl Maynard DO 83-year-old female with pain gradually increasing over the years status post surgery 2017 with failure to be able to repair rotator cuff due to chronic retraction and subsequent failed conservative management including deep tissue massage with some relief with Celebrex. Patient has pain weakness and dysfunction. Allergies Allergy/AdvReac Type Severity Reaction Status Date / Time Drysol Allergy Itching, Uncoded 11/07/23 09:14 redness Home Medications Medication Instructions Recorded Confirmed Type fluticasone furoate 27.5 2 mcg intranasal QAM 06/13/19 10/31/23 History mcg/actuation nasal spray,suspension (Flonase Sensimist) flaxseed oil 1,000 mg capsule 1,200 mg PO QAM 07/02/19 10/31/23 History B-complex with vitamin C (Super 1 cap PO DAILY 10/24/22 10/31/23 History B/C capsule) sodium bicarbonate-sodium 1 ea .Route QAM 10/24/22 10/31/23 History chloride-neti pot nasal rinse with packet ([place] Saline Nasal Neti Rinse with packet) celecoxib 100 mg capsule 100 mg PO BID PRN Pain 11/21/22 10/31/23 History Hemp Gummie 1 tab PO DAILY PRN Pain 05/22/23 10/31/23 History benzonatate 100 mg capsule 100 mg PO TID PRN Cough 05/22/23 10/31/23 History famotidine 20 mg tablet 20 mg PO BID 05/22/23 10/31/23 History glucosamine-chondroitin 250 mg-200 2 tab PO QAM 05/22/23 10/31/23 History mg tablet (Osteo Bi-Flex) multivitamin 2 tab PO DAILY 05/22/23 10/31/23 History aluminum chloride 20 % topical 1 applic topical DAILY #37.5 mL 09/25/23 10/31/23 Rx solution (Drysol) ketoconazole 2 % topical cream 1 applic topical BID #30 grams 09/25/23 10/31/23 Rx clonidine HCl 0.2 mg tablet 0.2 mg PO DAILY #90 tabs 10/15/23 10/31/23 Rx Joint Flex 1 dose topical DAILY PRN Pain 10/31/23 10/31/23 History naproxen sodium 220 mg tablet 220 mg PO BID PRN Pain 10/31/23 10/31/23 History (Aleve) Past Med/Surg History Medical History Chronic sinusitis HTN (hypertension) Per records, patient denies Type 2 diabetes mellitus Hyperhidrosis Reason for clonidine per patient Allergic rhinitis Degenerative disc disease Lumbar Arthritis GERD (gastroesophageal reflux disease) controlled Breast cancer Infiltrating ductal carcinoma of the left breast lower outer quadrant (2008) Status post left lumpectomy and SLNB status post completion of radiation therapy 2008 Surgical History History of lumpectomy of left breast History of esophagogastroduodenoscopy (EGD) History of carpal tunnel release Hx of bilateral cataract extraction History of tonsillectomy and adenoidectomy History of left hip replacement Left anterior KALI (07/07/19): SAB at [facility] Slow to wake up after anesthesia Hx of lumpectomy Left breast, 2008 History of colonoscopy History of repair of rotator cuff R/L, debridement Exploratory laparotomy scar Fibroid tumor removal Social History Smoking Status: Never smoker Second Hand Exposure: No; Do You Dip or Chew Tobacco: No; Hx Alcohol Use: No Hx Substance Use: No Preferred Language: Faroese Communication Ability: Effective Tax Lawyer Required: No Beliefs That Will Affect Care: None Current Living Situation: Alone Feels Safe at Home: Yes Assistive Devices: Hearing Aid - Bilateral Review of Systems All systems reviewed & are unremarkable except as noted in HPI & below Acid reflux Physical Exam Constitutional: WD/WN, vitals as above Respiratory: normal respiratory effort; no respiratory distress Cardiovascular: Rate/Rhythm: regular rate and regular rhythm Musculoskeletal: Right shoulder with abnormal rhythm some atrophy positive Lee and Neer impingement signs abnormal external rotation test with supraspinatus tendon weakness active forward flexion 70 degrees with passive flexion 150 degrees with 2+ to 3-/5 abduction and flexion strength. Skin: no rashes, warm and dry Neurologic: normal touch/pain/proprioception Psychiatric: A+Ox3, euthymic affect Results & Data Diagnostic Findings 2016 MRI demonstrates full-thickness rotator cuff tear. Current x-rays demonstrate decreased acromiohumeral interval on internal rotation with osteopenia and previous subacromial decompression.
[~2023-12-06 09:00] MED LIST changes: -ACETAMINOPHEN 500 MG TAB PO SCH; -CEFAZOLIN 1000MG 1,000 MG/7.5 ML SYR IV SCH; -CeleBREX 200 MG CAP PO SCH; +DEXAMETHASONE SOD INJ 4 MG/ML VIAL ONE; -FAMOTIDINE 20 MG TAB PO SCH; -GABAPENTIN 300 MG CAP PO SCH; +LIDOCAINE 2% 2 ML VIAL/AMP(20MG/ML) INFIL ONE; -LIDOCAINE HCL 2% 2 ML VIAL/AMP(20MG/ML) INFIL ONE; -LR 500ML BOLUS, THEN 15ML/HR IV SCH; -METOCLOPRAMIDE HCL 10 MG TABLET PO SCH; -MIDAZOLAM HCL 1 MG/ML 2ML VIAL ONE; +ONDANSETRON INJ 2 MG/ML 2 ML VIAL ONE; +ROCURONIUM BROMIDE 10 MG/ML 5 ML VIAL IV ONE; -ROPIVACAINE 0.5% HCL/PF 150 MG, BUPIVACAINE 0.5% MPF 30 ML, EPINEPHrine 30MG/30ML (OR U... INSTIL SCH; -TRANEXAMIC ACID 1,000 MG **IV Intra-op IV SCH; -TRANEXAMIC ACID 1,000 MG **IV Pre-op IV SCH; -dexAMETHasone 4 MG TAB PO SCH; -fentaNYL citrate 100 MCG/2 ML VIAL ONE; +fentaNYL citrate PF 100 MCG/2 ML VIAL ONE
[2023-12-06] MEDS: LR 15ML/HR IV SCH (09:42)
[2023-12-06] MEDS: CeleBREX 200 MG CAP PO SCH (09:43)
[2023-12-06] MEDS: GABAPENTIN 300 MG CAP PO SCH (09:43)
[2023-12-06] MEDS: ACETAMINOPHEN 500 MG TAB PO SCH ×2 (09:43→17:41)
[2023-12-06] MEDS: dexAMETHasone**PF** 10 MG/ML VIAL IV SCH (09:43)
[2023-12-06] MEDS: LR 60ML/HR IV SCH (09:44)
[2023-12-06] MEDS: METOCLOPRAMIDE HCL 10 MG TABLET PO SCH (09:44)
[2023-12-06] MEDS: FAMOTIDINE 20 MG TAB PO SCH (09:44)
[2023-12-06] MEDS ORDERED: fentaNYL citrate PF 100 MCG/2 ML VIAL IV PRN (10:27)
[2023-12-06] MEDS ORDERED: ATROPINE SULFATE 0.1 MG/ML 10ML SYR IV PRN (10:27)
[2023-12-06] MEDS ORDERED: ePHEDrine sulfate 50 MG/ML AMP IV PRN (10:27)
[2023-12-06] MEDS: TRANEXAMIC ACID 1,000 MG **IV Pre-op IV SCH (11:10)
--- NOTE | 2023-12-06 11:18 | History & Physical Bridge Note ---
Date of Service December 06, 2023 History & Physical Bridge Note I have examined the patient, reviewed the History & Physical and in the interval since the performance of the History & Physical I have noted the following changes of clinical significance: no changes noted
[2023-12-06] MEDS: ceFAZolin 2000MG 2,000 MG/15 ML SYR IV SCH ×2 (11:21→19:34)
[2023-12-06] MEDS ORDERED: fentaNYL citrate PF 100 MCG/2 ML VIAL ONE (12:06)
[2023-12-06] MEDS ORDERED: SODIUM CHLORIDE 0.9% PF INJ 10 ML VIAL ONE (12:27)
[2023-12-06] MEDS ORDERED: ePHEDrine sulfate 50 MG/ML AMP ONE (12:27)
[2023-12-06] MEDS ORDERED: ONDANSETRON INJ 2 MG/ML 2 ML VIAL ONE (13:12)
[2023-12-06] MEDS ORDERED: NEOSTIGMINE METHYLSULFATE 1 MG/ML 10ML VIAL ONE (13:12)
[2023-12-06] MEDS ORDERED: GLYCOPYRROLATE 0.2 MG/ML VIAL ONE (13:12)
[2023-12-06] MEDS: TRANEXAMIC ACID 1,000 MG **IV Intra-op IV SCH (13:15)
[2023-12-06] MEDS ORDERED: MAGNESIUM HYDROXIDE SUSP 30 ML UDC PO PRN (13:51)
[2023-12-06] MEDS ORDERED: oxyCODONE HCL IR 5 MG TAB (IMMEDIATE RELEASE) PO PRN (13:51)
[2023-12-06] MEDS ORDERED: bisacodyL 10 MG SUPP PR PRN (13:51)
[2023-12-06] MEDS ORDERED: NALOXONE HCL 0.4 MG/1 ML VIAL/CARP IV PRN (13:51)
[2023-12-06] MEDS ORDERED: HYDROmorphone INJ 0.5 MG/0.5 ML SYR IV PRN (13:51)
--- NOTE | 2023-12-06 13:52 | Operative Report ---
Post Operative Report Pre & Post Diagnosis Operation Date: 12/06/23 11:10 Pre-Op Diagnosis: Right Shoulder Chronic Non Repairable Rotator Cuff Tear, rotator cuff arthropathy, ruptured long head biceps tendon Post-Op Diagnosis: Right Shoulder Chronic Non Repairable Rotator Cuff Tear, rotator cuff arthropathy, ruptured long head biceps tendon I identified the patient and participated in the time-out.: Yes Procedure Operation Date: 12/06/23 11:10 Actual Procedures p Right Reverse Total Shoulder Arthroplasty(Right) - Isma De La Garza MD Surgeon Isma De La Garza MD Shutdown Coordinator Rubia FRANCO Estimated Blood Loss 150 Findings Consistent with Post-Op Diagnosis Specimens Humeral head Drains 2 Hemovac Anesthesia Type General Regional Complications none Disposition Disposition: Recovery Room Indications 83-year-old female with chronic right shoulder pain history of shoulder arthroscopy 2017 with debridement due to irreparable rotator cuff tear Description of Procedure The patient was taken to the operating room and anesthetized under regional block and general anesthetic. The patient was positioned on the operating table in a 30 beach chair position with a towel roll under the medial border of the right scapula. The arm was draped free to be able to manipulate the shoulder as needed. The right upper extremity was prepped and draped in usual sterile fashion. Exam demonstrated forward flexion 150 degrees abduction 80 degrees external rotation 90 degrees, subacromial crepitation. Thomas muscle. An anterior deltopectoral approach was performed. A longitudinal incision was made in the deltopectoral interval. The skin was incised sharply. Subcutaneous flaps were elevated off the fascia. The cephalic vein was dissected out and retracted lateral with the deltoid. The clavipectoral fascia was divided at the lateral margin of the conjoined tendon and extended up to the CA ligament. The following findings were noted: Biceps tendon was torn and retracted. The subscapularis had partial tearing and tendinopathy with a thin but intact subscapularis tendon tissue. There was 1 strand of rotator cuff supraspinatus tendon tissue intact which was only about 8 mm wide and remainder of the supraspinatus and infraspinatus were completely torn and retracted with the teres minor being intact. There were moderate arthritic changes. The upper centimeter of the pectoralis was released for inferior exposure. A self-retaining retractor was placed. The subscapularis muscle fibers were split longitudinally at the level of the circumflex vessels. The circumflex vessels were identified and tied off with silk ties and divided laterally. A Kitner elevator was used to free up the inferior fibers of the subscapularis off of the capsule. The axillary nerve was identified with a tug test and protected with a blunt Joseline retractor between the nerve and the capsule. The small strand of supraspinatus was resected and the subscapularis tendon was then taken down off of the lesser tuberosity subperiosteally, a Vicryl traction suture was placed and a subperiosteal dissection was performed along the neck of the humerus as the arm was gradually externally rotated exposing the humeral head. The humeral head findings demonstrated moderate arthritic changes with some small inferior osteophytes. retractors were readjusted and the inferior osteophytes were all resected using a small rongeur. A Lizama elevator was used to assist in releasing the capsule of the neck of the humerus. The capsule was divided with Hyde scissors down to the glenoid released off the anterior glenoid and the rotator interval was released to meet the capsular release and a 360 release of the subscapularis was accomplished. A Fukuda retractor was placed into the joint retracting the humeral head posterior. Glenoid findings demonstrated grade 3 chondral thinning centrally inferiorly with intact labrum.. The labrum was resected. an anterior-inferior and posterior inferior capsular release were performed with electrocautery and a Lizama elevator on bone with the axillary nerve protected inferiorly by the retractor. Attention was then taken to the humeral preparation. The cutting guide was placed into the humeral head. It was positioned at 20 of retroversion. Oscillating saw was used to resect the humeral head giving the cut above the level of the posterior rotator cuff insertion site. The humerus was then prepared for the stem. I used the ascend flex stem from [employer]. The sizing broaches were used followed by trial broaches up to a size 2B long which had the appropriate fit and fill. The appropriate sized cut protector was placed. The humerus was then retracted posterior to the glenoid. The glenoid was sized for a 36 symmetrical glenoid sphere and a 25 mm baseplate. The guide for the baseplate was positioned in a 10 inferior tilt and the central drill hole was made. The reamer for the 25 mm baseplate was used. The central drill was widened for the peg. The Tornier aequalis hydroxyapatite-coated 25 mm baseplate with a standard post baseplate was impacted into position. The base plate was transfixed with superior and inferior locking screws and anterior and posterior compression screws with stable fixation. The fan reamer was used for the 36 millimeter glenoid sphere. After irrigation the 36 mm centered glenoid sphere was impacted onto the baseplate and the security screw was tightened. Attention was taken back to the humerus. The cut protector was removed and the plus 0 high offset humeral tray trial was assembled to the trial stem rotated appropriately to get bony coverage and then screwed in position. A trial reduction was performed. A +6 mm reversed trial insert demonstrated good stability and no shuck. The trials were removed. 3 drill holes are made into the harder bone in the bicipital groove area and 3 #5 FiberWire sutures were placed transosseously. The canal was irrigated with antibiotic solution with bacitracin. The final component was assembled. The final component was Tornier ascend flex 2B long stem assembled to the plus or high offset tray with a +6, 36 mm reversed polyethylene insert. This was then impacted into the humerus with a tight press-fit. It was reduced to the glenoid sphere. Stability was verified. Subscapularis was repaired with the #5 FiberWire sutures using Wicho-Joseph suture technique. Lateral row soft tissue repair was performed with #2 FiberWire [id number] sutures. The pectoralis was repaired with #2 FiberWire [id number] sutures. the arm was taken through a range of motion which demonstrated 150 degrees forward flexion and 90 degrees abduction and 80 degrees internal and external rotation without tension on repair.. The implant was stable through the range of motion tested. The wound was copiously irrigated. 2 Hemovac drains were placed. The deltopectoral interval was closed with [id number] #1 Vicryl sutures. The subcutaneous tissues were closed with 2-0 Vicryl sutures. The skin was closed with surgical kathrine. Sterile dressings were applied and a shoulder immobilizer. Rubia FRANCO, my physician assistant superintendent acted as assistant signal maintainer throughout the procedure .He performed functions including patient positioning, arm positioning, prepping and draping, soft tissue retraction, instrument management, suture management and performed the subcutaneous and skin closure and will participate in the postoperative care of the patient. I attest to the content of the Intraoperative Record and any orders documented therein. Any exceptions are noted below.
--- NOTE | 2023-12-06 14:22 | Anesthesiology Progress Note ---
Date of Service December 06, 2023 Anesthesia Post Procedure Vital Signs Vital Signs: Temp Pulse Pulse Resp BP Pulse Ox O2 Del Method 12/06/23 13:56 96.8 F L 75 20 141/81 H 100 Oxymask 12/06/23 10:13 98.1 F 75 20 162/104 H 96 Room Air O2 Flow Rate 12/06/23 13:56 7 12/06/23 10:13 Transfer of Care Handoff Completed per policy Notes Mental Status: alert / awake / arousable and participated in evaluation Patient Amnestic to Procedure: Yes Nausea / Vomiting: adequately controlled Pain: adequately controlled Airway Patency, RR, SpO2: stable & adequate BP & HR: stable & adequate Hydration State: stable & adequate Anesthetic Complications: no major complications apparent and Pt Satisfied with anesthetic care
[2023-12-06] MEDS: ONDANSETRON INJ 2 MG/ML 2 ML VIAL IV PRN (14:47)
--- NOTE | 2023-12-06 14:49 | XRay Report ---
XR shoulder RT min 2V routine HISTORY: 83 years-old Female Post shoulder surgery right shoulder arthroplasty COMPARISON: Chest radiograph 11/07/2023 TECHNIQUE: 2 views of the right shoulder FINDINGS: Reverse right shoulder total arthroplasty. Overlying skin kathrine with expected postoperative soft ti ssue swelling and deep tissue air. No acute fracture or unexpected opaque foreign body. IMPRESSION: Right shoulder arthroplasty with expected postoperative changes. ACT 112: Negative or not required by law. The above report was generated using voice recognition software. It may contain grammatical, syntax o r spelling errors. Electronically signed by: Raymon Espinoza M.D. 12/06/2023 2:48 PM
[2023-12-06] MEDS ORDERED: BENZONATATE 100 MG CAPSULE PO PRN (15:45)
[2023-12-06] MEDS ORDERED: JOINT FLEX TOP PRN (15:45)
[2023-12-06] MEDS ORDERED: [UNRECOGNIZED DRUG - OTHER] PO PRN (15:45)
[2023-12-06] MEDS: SODIUM CHLORIDE 0.9% 1,000 ML IV SCH (16:29)
[2023-12-06] MEDS: ONDANSETRON 4 MG OD TAB PO PRN (17:05)
--- NOTE | 2023-12-06 17:29 | Consultation ---
Date of Consultation December 06, 2023 Assessment & Plan (1) Status post reverse arthroplasty of right shoulder: Plan Ms. Romo is an 83 year old woman with history of breast cancer s/p lumpectomy/chemo 2008, DMTII, GERD, hyperhidrosis, DJD or lumbar and cervical spin, knee osteoarthrosis, prior left hip replacement who is now s/p right shoulder arthroplasty on 12/05. Medicine consulted for comanagement. 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 Karl Maynard Thank you for this consultation. We will follow the patient with you during their hospital stay. You can reach a member of the [facility] Hospitalist Team 19/03 via [employer] History of Present Illness Requesting Physician: Isma De La Garza MD Reason for Consultation: Med Comanagement Attending Physician: Isma De La Garza MD History of Present Illness Ms. Romo is an 83 year old woman with history of breast cancer s/p lumpectomy/chemo 2008, DMTII, GERD, hyperhidrosis, DJD or lumbar and cervical spin, knee osteoarthrosis, prior left hip replacement who is now s/p right shoulder arthroplasty on 12/05. Medicine consulted for comanagement. Patient states pain is well controlled at time of eval. She denies chest pain, palpitations, nausea, vomiting or other acute concerns. Patient very knowledgeable about procedure and eager for good outcomes. Neighbor at bedside who will follow up with patient post-op upon dispo Vital signs stable postoperatively and saturating well on room air. Allergies Allergy/AdvReac Type Severity Reaction Status Date / Time aluminum Allergy Itching Unverified 12/06/23 16:02 Home Medications Medication Instructions Recorded Confirmed Type fluticasone furoate 27.5 2 mcg intranasal QAM 06/13/19 12/06/23 History mcg/actuation nasal spray,suspension (Flonase Sensimist) flaxseed oil 1,000 mg capsule 1,200 mg PO QAM 07/02/19 12/06/23 History B-complex with vitamin C (Super 1 cap PO DAILY 10/24/22 12/06/23 History B/C capsule) sodium bicarbonate-sodium 1 ea .Route QAM 10/24/22 12/06/23 History chloride-neti pot nasal rinse with packet ([place] Saline Nasal Neti Rinse with packet) celecoxib 100 mg capsule 100 mg PO BID PRN Pain 11/21/22 12/06/23 History Hemp Gummie 1 tab PO DAILY PRN Pain 05/22/23 12/06/23 History benzonatate 100 mg capsule 100 mg PO TID PRN Cough 05/22/23 12/06/23 History famotidine 20 mg tablet 20 mg PO BID 05/22/23 12/06/23 History glucosamine-chondroitin 250 mg-200 2 tab PO QAM 05/22/23 12/06/23 History mg tablet (Osteo Bi-Flex) multivitamin 2 tab PO DAILY 05/22/23 12/06/23 History ketoconazole 2 % topical cream 1 applic topical BID #30 grams 09/25/23 12/06/23 Rx Joint Flex 1 dose topical DAILY PRN Pain 10/31/23 12/06/23 History naproxen sodium 220 mg tablet 220 mg PO BID PRN Pain 10/31/23 12/06/23 History (Aleve) clonidine HCl 0.2 mg tablet 0.2 mg PO DAILY #90 tabs 12/03/23 12/06/23 Rx Patient History Medical History Chronic sinusitis HTN (hypertension) Per records, patient denies Type 2 diabetes mellitus Hyperhidrosis Reason for clonidine per patient Allergic rhinitis Degenerative disc disease Lumbar Arthritis GERD (gastroesophageal reflux disease) controlled Breast cancer Infiltrating ductal carcinoma of the left breast lower outer quadrant (2008) Status post left lumpectomy and SLNB status post completion of radiation therapy 2008 Surgical History History of lumpectomy of left breast History of esophagogastroduodenoscopy (EGD) History of carpal tunnel release Hx of bilateral cataract extraction History of tonsillectomy and adenoidectomy History of left hip replacement Left anterior KALI (07/07/19): SAB at [facility] Slow to wake up after anesthesia Hx of lumpectomy Left breast, 2008 History of colonoscopy History of repair of rotator cuff R/L, debridement Exploratory laparotomy scar Fibroid tumor removal Social History Smoking Status: Never smoker Second Hand Exposure: No; Do You Dip or Chew Tobacco: No; Tobacco Cessation Education Requested by Patient: No Hx Alcohol Use: No Hx Substance Use: No Preferred Language: Faroese Communication Ability: Effective Door To Door Salesman Required: No Beliefs That Will Affect Care: None Current Living Situation: Alone Other Information That Helps Us Care for You: No Feels Safe at Home: Yes Safety Concerns: Feels Safe At This Time Assistive Devices: Hearing Aid - Bilateral Review of Systems Review of Systems: All systems reviewed & are unremarkable except as noted in Subjective Physical Exam Constitutional: WD/WN, vitals as above Respiratory: normal respiratory effort, lungs clear to auscultation Cardiovascular: RRR, no murmur, no edema Musculoskeletal: right shoulder in immobilizer, dressing CDI Results & Data Vital Signs (Past 12 Hours) Vital Signs Temp Pulse Pulse Resp BP Pulse Ox O2 Del Method 12/06/23 17:00 36.4 C L 80 16 136/80 94 Room Air 12/06/23 16:29 36.3 C L 81 16 143/78 H 94 Room Air 12/06/23 16:00 36.3 C L 78 16 134/81 94 Room Air 12/06/23 15:31 36.3 C L 73 18 147/81 H 92 Room Air 12/06/23 15:05 36.3 C L 67 19 145/78 H 96 Room Air 12/06/23 14:55 36.3 C L 68 20 143/84 H 92 Room Air 12/06/23 14:45 36.3 C L 69 20 148/80 H 96 Room Air 12/06/23 14:35 36.3 C L 73 16 151/81 H 96 Room Air 12/06/23 14:25 36.3 C L 69 22 155/81 H 99 Oxymask 12/06/23 14:15 75 19 163/91 H 100 Oxymask 12/06/23 14:05 69 20 136/84 100 Oxymask 12/06/23 13:56 36.0 C L 75 20 141/81 H 100 Oxymask 12/06/23 10:13 36.7 C 75 20 162/104 H 96 Room Air O2 Flow Rate 12/06/23 17:00 12/06/23 16:29 12/06/23 16:00 12/06/23 15:31 12/06/23 15:05 12/06/23 14:55 12/06/23 14:45 12/06/23 14:35 12/06/23 14:25 2 12/06/23 14:15 3 12/06/23 14:05 5 12/06/23 13:56 7 12/06/23 10:13 Laboratory Results OP labs reviewed Diagnostic Findings Shoulder X-Ray 12/06/23 13:52 XR shoulder RT min 2V routine HISTORY: 83 years-old Female Post shoulder surgery right shoulder arthroplasty COMPARISON: Chest radiograph 11/07/2023 TECHNIQUE: 2 views of the right shoulder FINDINGS: Reverse right shoulder total arthroplasty. Overlying skin kathrine with expected postoperative soft tissue swelling and deep tissue air. No acute fracture or unexpected opaque foreign body. IMPRESSION: Right shoulder arthroplasty with expected postoperative changes. ACT 112: Negative or not required by law. The above report was generated using voice recognition software. It may contain grammatical, syntax or spelling errors. Electronically signed by: Raymon Espinoza M.D. 12/06/2023 2:48 PM Medications Administered Home Medications Medication Instructions Recorded Confirmed Last Taken fluticasone furoate 27.5 2 mcg intranasal QAM 06/13/19 12/06/23 12/06/23 06:00 mcg/actuation nasal spray,suspension (Flonase Sensimist) flaxseed oil 1,000 mg capsule 1,200 mg PO QAM 07/02/19 12/06/23 11/22/23 08:00 B-complex with vitamin C (Super 1 cap PO DAILY 10/24/22 12/06/23 12/04/23 08:00 B/C capsule) sodium bicarbonate-sodium 1 ea .Route QAM 10/24/22 12/06/23 12/06/23 06:00 chloride-neti pot nasal rinse with packet ([place] Saline Nasal Neti Rinse with packet) celecoxib 100 mg capsule 100 mg PO BID PRN Pain 11/21/22 12/06/23 12/04/23 08:00 Hemp Gummie 1 tab PO DAILY PRN Pain 05/22/23 12/06/23 12/04/23 08:00 benzonatate 100 mg capsule 100 mg PO TID PRN Cough 05/22/23 12/06/23 Unknown famotidine 20 mg tablet 20 mg PO BID 05/22/23 12/06/23 12/06/23 06:00 glucosamine-chondroitin 250 mg-200 2 tab PO QAM 05/22/23 12/06/23 12/04/23 08:00 mg tablet (Osteo Bi-Flex) multivitamin 2 tab PO DAILY 05/22/23 12/06/23 12/04/23 08:00 ketoconazole 2 % topical cream 1 applic topical BID #30 grams 09/25/23 12/06/23 Unknown Joint Flex 1 dose topical DAILY PRN Pain 10/31/23 12/06/23 12/04/23 08:00 naproxen sodium 220 mg tablet 220 mg PO BID PRN Pain 10/31/23 12/06/23 Unknown (Aleve) clonidine HCl 0.2 mg tablet 0.2 mg PO DAILY #90 tabs 12/03/23 12/06/23 12/05/23 21:00 Active Medications Generic Name Dose Route Start Last Admin Trade Name Freq PRN Reason Stop Dose Admin Sodium Chloride 1,000 mls @ 100 mls/hr 12/06/23 14:00 12/06/23 16:29 Nss IV 12/07/23 06:00 100 mls/hr .Q10H APRIL Administration Ondansetron HCl 4 mg 12/06/23 16:47 12/06/23 17:05 Ondansetron 4 Mg Od Tab PO 01/05/24 16:46 4 mg Q6H PRN Administration Nausea
[2023-12-06] MEDS: cloNIDine HCL 0.1 MG TAB PO SCH (17:43)
[2023-12-06] MEDS: MELATONIN 3 MG TAB PO SCH (21:18)
[2023-12-06] MEDS: DOCUSATE SODIUM 100 MG CAP PO SCH (21:18)
[2023-12-06] MEDS: SENNA 8.6 MG TAB PO SCH (21:18)
[2023-12-06] MEDS: KETOCONAZOLE 2% CR 15 GM TUBE EXT SCH (21:19)
--- OUTSIDE RECORDS SUMMARY | 2023-12-06 22:56 | External Medical Summary | Summary of Care ---
Author Name Unknown Organization [facility] Address [address] [place] [address] Phone [phone] Care Team Providers Care Industrial Furnace Fabricator Name Role Phone Karl Maynard DO Primary Care Provider [phone] Reason for Visit * Reason Comments Physical-Exam Pre Op exam Encounter Details Date Type Department Care Team (Latest Contact Info) Description 11/21/2023 10:00 AM EDT Office Visit Family Practice [address] [place] [address] [place] [id number] Karl Maynard DO [address] [place] [address] Preoperative general physical examination*; Primary osteoarthritis of right shoulder; Type 2 diabetes mellitus with hemoglobin A1c goal of less than 8.0% ([facility]); DDD (degenerative disc disease), lumbar; Gastroesophageal reflux disease without esophagitis; History of left hip replacement; Non-seasonal allergic rhinitis due to pollen; DDD (degenerative disc disease), cervical; Hyperhidrosis Allergies Active Allergy Reactions Criticality Noted Date Comments Codeine Nausea/vomiting Low 04/17/2012 Aluminum Chloride Rash 10/09/2023 Other Allergy (See Comments) 04/17/2012 States allergic to "snow mold", reacts with bronchiole congestions when mold gets moist from melting snow or rain documented as of this encounter (statuses as of 11/22/2023) Medications Medication Sig Dispensed Refills Start Date End Date Status B Complex-C (SUPER B COMPLEX) Tablet Take 1 Tablet by mouth in the morning. 0 Active Ketoconazole 2 % External Cream Apply topically to affected area 2 times a day . Apply to below breasts and in groin 30 g 3 10/12/2021 Active Sinus Rinse Kit Nasal Packet Administer 1 Each into nostril in the morning. 0 10/12/2021 Active Womens Multivitamin + Collagen Oral Tablet Chewable Take by mouth 2 Each daily . 0 10/12/2021 Active Flaxseed Oil 1200 MG Oral Capsule Take 1 Capsule by mouth in the morning. (Alternates monthly with Fish oil). 0 10/25/2021 Active NATURAL SUPPLEMENT Take 10 mg by mouth daily as needed. Hemp gummies 0 Active Celecoxib 100 MG Oral Capsule (CeleBREX)Indicati ons:DDD (degenerative disc disease), lumbar TAKE ONE CAPSULE BY MOUTH TWICE A DAY NEEDED FOR SEVERE PAIN 200 Capsule 3 02/13/2023 Active Fluticasone Propionate 50 MCG/ACT Nasal Suspension (Flonase)Indicatio ns:Non-seasonal allergic rhinitis due to pollen INSTILL 2 SPRAYS IN EACH NOSTRIL ONCE A DAY 48 g 3 06/10/2023 4 Active Famotidine 20 MG Oral Tablet (Pepcid)Indication s:Gastroesophageal reflux disease without esophagitis TAKE ONE TABLET BY MOUTH IN THE MORNING AND ONE TABLET BEFORE BEDTIME 200 Tablet 3 08/28/2023 5 Active Osteo Bi-Flex Triple Strength Oral Tablet Take 2 Tablets by mouth in the morning. (Contains vitamin D). 0 Active AMBULATORY MISCELLANEOUS MEDICATION MedTerra Rapid Recovery - CBD roll on (250mg) for muscle pain 0 Active cloNIDine HCl 0.2 MG Oral Tablet (Catapres)Indicati ons:hyperhidrosis Take 1 Tablet by mouth at bedtime. 0 Active tiZANidine HCl 4 MG Oral Tablet (Zanaflex) Take 1 Tablet by mouth at bedtime as needed for Muscle spasms. 30 Tablet 3 10/09/2023 Active Probiotic & Acidophilus Ex St Oral Capsule Take 1 Capsule by mouth in the morning and 1 Capsule at noon and 1 Capsule in the evening. Take with meals. 90 Capsule 3 2023 4 Discontinue d(Medicatio n List Clean Up) documented as of this encounter (statuses as of 11/22/2023) Active Problems Problem Noted Date Diagnosed Date Primary osteoarthritis of right shoulder 024 Hyperhidrosis 06/21/2023 Primary insomnia 04/18/2023 Urinary urgency 10/17/2022 DDD (degenerative disc disease), cervical 2022 Non-seasonal allergic rhinitis due to pollen Type 2 diabetes mellitus wit h hemoglobin A1c goal of less than 8.0% 10/17/2021 Bilateral primary osteoarthritis of knee 022 Primary osteoarthritis of both first carpometaca rpal joints 10/12/2021 History of left hip replacement 10/12/2021 Gastroesophageal reflux disease without esophagi tis 09/24/2019 Primary osteoarthritis of left hip 05/05/2019 Rosacea 07/06/2015 History of breast cancer 01/05/2009 DDD (degenerative disc disease), lumbar 01/14/20 04 documented as of this encounter (statuses as of 11/22/2023) Resolved Problems Problem Noted Date Diagnosed Date Resolved Date Elevated glucose 10/12/2021 10/12/2021 Prediabetes 01/04/2021 10/17/2021 Overview: Per Prediabetes protocol Other somatoform disorders 09/15/2019 0 09/24/2019 Globus sensation 11/07/2018 09/15/2019 Family history of breast cancer in female 01/23/2015 08/08/2018 Depression 10/16/2012 12/01/2016 Seasonal affective disorder 10/16/2012 10/09/2023 Supraspinatus sprain 10/16/2012 017 N10C2 Clinical Trial [id number] 02/20/2012 09/03/2013 Overview: Trial participant as of: 02/15/12 on [facility] N10C2: Double-Blinded, Placebo- Controlled Study of Magnesium Supplements to Reduce Menopausal Hot Flashes Project #: [id number] PI Name: Matt Angel MD PI CRC Name: Holly Crain CRC Contact PI or CRC regarding any serious medical event, ER visit, hospitalization, if new Rx given, or billing question N10C2 Clinical Trial [id number] 02/20/2012 10/08/2013 Overview: Renamed per the Centers for Medicare and Medicaid billing requirements to include Clinical Trial.gov number. Trial participant as of: 02/15/12 on [facility] N10C2: Double-Blinded, Placebo-Controlled Study of Magnesium Supplements to Reduce Menopausal Hot Flashes Project #: [id number] PI Name: Matt Angel MD PI CRC Name: Holly CABELLO Contact PI or CRC regarding any serious medical event, ER visit, hospitalization, if new Rx given, or billing question BACKACHE NOS 01/14/2004 12/01/2016 GENERAL OSTEOARTHROSIS 01/14/200412/01 documented as of this encounter (statuses as of 11/22/2023) Immunizations Name Administration Dates Next Due COVID-19 mRNA, LNP-s, No Pre serve, 2-Dose Series (Moderna) 06/20/2021,10/24/2020,09/16/2020 COVID-19, MRNA-LNP, 23-24, P F, 30 MCG/0.3 mL, 12 YRS AND ABOVE, IM ([employer]Comirnat) 06/12/2023 COVID-19, mRNA, LNP-s, PF, B ooster, 100mcg/0.5mg (Moderna) 12/14/2021,06/20/2021 Covid-19, Mrna, Lnp-s, Pf, B ivalent, 30 Mcg, IM, 12 yrs and above (Pfizer) 05/16/2022 PPD 09/03/2013 Pneumococcal Conjugate Vacc, 13 Valent (Prevnar) 05/21/2014 Pneumococcal Polysaccharide PPV23 (Pneumovax) 12/05/2005 Season Influenza, Quad, PF, Adjuvanted, 65+ Yrs, IM (FLUAD) 05/08/2020 Seasonal Influenza, PF, 6 M & above, IM , (FluLaval or Fluzone) 05/05/2019,05/15/2018,05/23/2017 Seasonal Influenza, Quadriva lent Hd (Fluzone Hd) 05/02/2023,05/10/2022 Seasonal Influenza, Split, I IV3, With Preserve, Inj 05/15/2016,05/11/2015,05/15/2014,04/27,05/11/2012,07/04/2011,06/21/20 10,06/18/2007 07/04/2012 Seasonal Influenza, Trivalen t, High Dose, No Preserve, IM 05/11/2021 TDAP (age 10 and older)(Boostrix) 11/18/2015 TDAP (age 11 and older)(Adacel) 08/17/2010 Varicella Zoster Vaccine (Adult) 05/27/2013 Zoster Vaccine Recombinant (Shingrix) 02/26/2020 ,09/01/2019 documented as of this encounter Social History Tobacco Use Types Packs/Day Years Used Date Smoking Tobacco: Never Passive Smoke Exposure: Never Smokeless Tobacco: Never Tobacco Cessation:Counseling Given: Yes Alcohol Use Standard Drinks/Week Comments No 0 (1 standard drink = 0.6 oz pur e alcohol) PHQ-2 Answer Date Recorded PHQ Adult Total Score 7 07/13/2023 Hunger Vital Sign Answer Date Recorded Within the past 12 months, y ou worried that your food would run out before you got the money to buy more. Never true 07/13/20 23 Within the past 12 months, t he food you bought just didn't last and you didn't have money to get more. Never true 07/13/2023 Sex and Gender Information Value Date Recorded Sex Assigned at Female 12/06/2021 9:54 AM EDT Gender Identity Female 12/06/2021 9:54 AM EDT Sexual Orientation Straight 12/06/2021 9: 54 AM EDT Job Start Date Occupation Industry Not on file Not on file Not on file documented as of this encounter Last Filed Vital Signs Vital Sign Reading Time Taken Comments Blood Pressure 130/74 11/21/2023 9:53 AM EDT Pulse 76 11/21/2023 9:53 AM EDT Temperature 36.2 C (97.2 F) 11/21/2023 9:53 AM ED T Respiratory Rate 14 11/21/2023 9:53 AM EDT Oxygen Saturation 95% 11/21/2023 9:53 AM EDT Inhaled Oxygen Concentration - - Weight 68.6 kg (151 lb 3.2 oz) 11/21/2023 9:53 A M EDT Height 156.2 cm (5' 1.5") 11/21/2023 9:53 AM EDT Body Mass Index 28.11 11/21/2023 9:53 AM EDT documented in this encounter Progress Notes * Karl Maynard, DO - 11/21/2023 4:22 PM EDT Images from the original note were not included. SUBJECTIVE: Brunilda Romo is a 83 year old female. Chief Complaint Patient presents with Physical-Exam Pre Op exam HPI: Patient is an 83 year old female with a history of breast Cancer, DM type II, GERD, Hyperhidrosis, Lumbar Disc Disease, Cervical Disc Disease, bilateral knee osteoarthritis, left hip replacement, andright shoulder osteoarthritis that is seen for medical evaluation prior to right shoulder replacement. The patient exercises daily without difficulty. No chest pain or shortness of breath are present. Appetite is good and weight is stable. Chronic rhinitis is unchanged. Patient Active Problem List Diagnosis Code DDD (degenerative disc disease), lumbar M51.36 History of breast cancer Z85.3 Rosacea L71.9 Primary osteoarthritis of left hip M16.12 Gastroesophageal reflux disease without esophagitis K21.9 Bilateral primary osteoarthritis of knee M17.0 Primary osteoarthritis of both first carpometacarpal joints M18.0 History of left hip replacement Z96.642 Type 2 diabetes mellitus with hemoglobin A1c goal of less than 8.0% ([facility]) E11.9 Non-seasonal allergic rhinitis due to pollen J30.1 Urinary urgency R39.15 DDD (degenerative disc disease), cervical M50.30 Primary insomnia F51.01 Hyperhidrosis R61 Primary osteoarthritis of right shoulder M19.011 Current Outpatient Medications Medication Sig Dispense Refill B Complex-C (SUPER B COMPLEX) Tablet Take 1 Tablet by mouth in the morning. Ketoconazole 2 % External Cream Apply topically to affected area 2 times a day . Apply to below breasts and in groin 30 g 3 Womens Multivitamin + Collagen Oral Tablet Chewable Take by mouth 2 Each daily . Flaxseed Oil 1200 MG Oral Capsule Take 1 Capsule by mouth in the morning. (Alternates monthly with Fish oil). Celecoxib 100 MG Oral Capsule (CeleBREX) TAKE ONE CAPSULE BY MOUTH TWICE A DAY NEEDED FOR SEVEREPAIN 200 Capsule 3 Fluticasone Propionate 50 MCG/ACT Nasal Suspension (Flonase) INSTILL 2 SPRAYS IN EACH NOSTRIL ONCE A DAY 48 g 3 Famotidine 20 MG Oral Tablet (Pepcid) TAKE ONE TABLET BY MOUTH IN THE MORNING AND ONE TABLET BEFOREBEDTIME 200 Tablet 3 Osteo Bi-Flex Triple Strength Oral Tablet Take 2 Tablets by mouth in the morning. (Contains vitaminD). cloNIDine HCl 0.2 MG Oral Tablet (Catapres) Take 1 Tablet by mouth at bedtime. tiZANidine HCl 4 MG Oral Tablet (Zanaflex) Take 1 Tablet by mouth at bedtime as needed for Muscle spasms. 30 Tablet 3 Sinus Rinse Kit Nasal Packet Administer 1 Each into nostril in the morning. NATURAL SUPPLEMENT Take 10 mg by mouth daily as needed. Hemp gummies AMBULATORY MISCELLANEOUS MEDICATION MedTerra Rapid Recovery - CBD roll on (250mg) for muscle pain No current facility-administered medications for this visit. The patient's medication list was reviewed and updated as needed. Past Medical History: Diagnosis Date Bilateral primary osteoarthritis of knee 10/12/2021 Cataract extraction status 06/28/2011 right Cataract extraction status 07/12/2011 left Cervical disc disease Elevated glucose 10/12/2021 GERD (gastroesophageal reflux disease) History of breast cancer History of left hip replacement 10/12/2021 Malignant neoplasm of female breast (HCC) 08/27/2008 Breast left Non-seasonal allergic rhinitis due to pollen 04/19/2022 Osteoarthritis Primary insomnia 04/18/2023 Primary osteoarthritis of both first carpometacarpal joints 10/12/2021 Screening for malignant neoplasm of cervix 12/08/2010 WNL/Dr Davis Type 2 diabetes mellitus with hemoglobin A1c goal of less than 8.0% ([facility]) 10/17/2021 Urinary urgency 10/17/2022 Past Surgical History: Procedure Laterality Date CARPAL TUNNEL SURGERY Right 06/2021 DENTAL SURGERY PROCEDURE NEC Dental Surgery Procedure EGD, FLEXIBLE, DIAGNOSTIC 08/01/2018 tortuous esophagus, hiatal hernia/ESOPHAGOGASTRODUODENOSCOPY (EGD), FLEXIBLE, TRANSORAL, DIAGNOSTICperformed by Tez Ventura MD at [facility] QUICK SKETCH ARTIST PAP SCREEN 10/14/2001 benign cellular changes, satisfactory for evaluation QUICK SKETCH ARTIST PAP SCREEN 10/10/2002 WNL MAMMOGRAM - BILATERAL 11/13/2006 birad code 2 MAMMOGRAM - BILATERAL 11/15/2007 birad code 2 MAMMOGRAM SCREENING BILATERAL 12/05/2010 normal, repeat in one year MAMMOGRAM SCREENING-BILATERAL 11/17/2008 birad code 0,additional views left breast MASTECTOMY, PARTIAL 12/28/2008 Left PM/SLNB (neg node & clearLeft PM/SLNB (neg node & clear margins) at [facility] - Dr. Delgado margins) at [facility] - Dr. Delgado PAP SCREEN 10/26/2003 negative/o jean baptiste PAP SCREEN 10/13/2004 WNL PAP SCREEN 11/10/2005 negative for lesion/satisfactory/Dr Rose PAP SCREEN 12/04/2007 satisfactory/adarsh PAP SCREEN 12/07/2009 neg/O'ita PAP SCREEN 12/17/2012 neg/ Dr. Rose PAP SCREEN 12/18/2013 neg/ Dr. Rose MD ARTHRP ACETBLR/PROX FEM PROSTC AGRFT/ALGRFT 2019 REMOVAL OF SKIN TAGS, UP TO 15 01/01/2014 The 0.4x0.3cm tumor found on the larger ellipse of skin is a seborrheic keratosis. the 0.2x0.2 cm tumor found on the smaller ellipse of skin is an acrochordon (sking tag) REMOVE CATARACT, INSERT LENS PROSTH Right 06/29/2011 right eye, [facility] REMOVE CATARACT, INSERT LENS PROSTH Left 07/12/2011 left eye, [facility] REMOVE TONSILS & ADENOIDS, UNDER 12 T & A, age<12 REPAIR RUPTURED ROTATOR CUFF, ACUTE 11/1999 Left Rotator cuff repair SACROILIAC JOINT INJECT W/GUIDANCE 05/03/2023 INJECTION SACROILIAC JOINT performed by Pepe Mercado DO at [facility] SHOULDER ARTHROSCOPY SURGERY Right 2017 Shoulder Surgery, Arthroscopic-Diagnostic TOTAL HIP REPLACEMENT & PROSTHESIS Left 06/2019 US GUIDED BREAST BIOPSY 12/01/2008 Left breast (IDC with DCIS) at [facility] Review of patient's allergies indicates: Allergen Reactions Drysol [Aluminum Chloride] Rash Other Allergy (See Comments) States allergic to "snow mold", reacts with bronchiole congestions when mold gets moist from melting snow or rain Codeine Nausea/vomiting Review of Systems Constitutional: Positive for diaphoresis. Negative for appetite change, fatigue and unexpected weight change. HENT: Positive for postnasal drip and rhinorrhea. Negative for congestion, sore throat and trouble swallowing. Respiratory: Negative for cough, shortness of breath and wheezing. Cardiovascular: Negative for chest pain, palpitations and leg swelling. Gastrointestinal: Negative for abdominal pain, blood in stool, constipation, diarrhea, nausea and vomiting. Genitourinary: Negative for dysuria, frequency and hematuria. Musculoskeletal: Positive for back pain. Negative for gait problem. Right shoulder pain is present Neurological: Negative for dizziness, syncope and headaches. Psychiatric/Behavioral: Negative for confusion, decreased concentration and sleep disturbance. OBJECTIVE: BP 130/74 | Pulse 76 | Temp 36.2 C (97.2 F) (Tympanic) | Resp 14 | Ht 1.562 m (5' 1.5") | Wt 68.6 kg (151 lb 3.2 oz) | SpO2 95% | BMI 28.11 kg/m | BSA 1.73 m Physical Exam Vitals and nursing note reviewed. Constitutional: General: She is not in acute distress. Appearance: Normal appearance. She is not toxic-appearing. HENT: Head: Normocephalic and atraumatic. Cardiovascular: Rate and Rhythm: Normal rate and regular rhythm. Heart sounds: Normal heart sounds. No murmur heard. No gallop. Pulmonary: Effort: Pulmonary effort is normal. Breath sounds: Normal breath sounds. No wheezing, rhonchi or rales. Abdominal: General: Bowel sounds are normal. There is no distension. Palpations: Abdomen is soft. Tenderness: There is no abdominal tenderness. Musculoskeletal: Right lower leg: No edema. Left lower leg: No edema. Neurological: Mental Status: She is alert and oriented to person, place, and time. Mental status is at baseline. Motor: No weakness. Gait: Gait normal. Psychiatric: Mood and Affect: Mood normal. Behavior: Behavior normal. Thought Content: Thought content normal. Results for orders placed or performed in visit on 10/11/23 ALBUMIN Result Value Ref Range Albumin 4.3 3.8 - 5.0 g/dL Component Latest Ref Rng 10/09/2023 BUN 6 - 20 mg/dL 18 Creatinine 0.5 - 1.0 mg/dL 0.8 Estimated Glomerular Filtration Rate >=60 mL/min 79 Sodium 135 - 146 mmol/L 144 Potassium 3.5 - 5.1 mmol/L 4.2 Chloride 98 - 107 mmol/L 107 CO2 22 - 32 mmol/L 26 Anion Gap 7 - 15 mmol/L 11 Glucose 70 - 120 mg/dL 87 Albumin 3.8 - 5.0 g/dL 2.1 (L) AST 10 - 35 U/L 27 Alkaline Phosphatase 35 - 130 U/L 105 Bilirubin, Total <=1.2 mg/dL 0.4 Calcium 8.4 - 10.2 mg/dL 9.9 Protein 6.0 - 8.3 g/dL 7.0 ALT 10 - 35 U/L 34 WBC 4.00 - 10.80 K/uL 8.71 Neutrophils % 40.0 - 75.0 % 60.5 Lymphocytes % 18.0 - 42.0 % 25.6 Monocytes % 1.0 - 11.0 % 10.6 Eosinophils % 0.0 - 6.0 % 1.7 Basophils % 0.0 - 2.0 % 0.7 Immature Granulocytes % 0.0 - 2.0 % 0.9 Absolute Neutrophils 1.80 - 7.70 K/uL 5.27 Absolute Lymphocytes 1.00 - 4.80 K/ul 2.23 Absolute Monocytes 0.00 - 1.10 K/uL 0.92 Absolute Eosinophils 0.00 - 0.70 K/uL 0.15 Absolute Basophils 0.00 - 0.20 K/uL 0.06 Absolute Immature Granulocytes 0.00 - 0.20 K/uL 0.08 WBC 4.00 - 10.80 K/uL 8.71 RBC 3.85 - 5.15 M/uL 5.32 HGB 12.0 - 15.3 g/dL 16.8 (H) HCT 36.0 - 45.2 % 50.6 (H) MCV 81.5 - 97.5 fL 95.1 MCH 27.0 - 34.0 pg 31.6 MCHC 32.0 - 36.0 g/dL 33.2 RDW 11.5 - 15.5 % 13.3 PLT 140 - 400 K/uL 324 MPV 6.6 - 11.1 fL 8.7 nRBCs <=0 /100 WBCs 0 Triglycerides <=174 mg/dL 137 Cholesterol <200 mg/dL 206 (H) HDL Cholesterol >49 mg/dL 68 Non-HDL Cholesterol <=159 mg/dL 138 LDL Cholesterol <=129 mg/dL 111 Hemoglobin A1C 4.0 - 5.6 % 6.5 (H) Estimated Average Glucose <126 mg/dL 140 (H) Labs done at [facility] [address] on 11/07/2023 PT and PTT are normal. UA is normal Studies done at [facility] [address] on 11/07/2023 CXR: No acute cardiopulmonary findings ECG: NSR, low voltage, RBBB, T wave abnormality, consider inferolateral ischemia. Unchanged from 06/23/[address] [facility] on 07/02/2019 report reviewed LV size, wall motion and function are normal Mild LVH EF65-70% No significant valvular pathology Surgical Risk Scoring Revised Cardiac Risk Index (RCRI) High-risk type of surgery (examples include vascular and any open intraperitoneal or intrathoracic procedures): 0=No History of ischemic heart disease (history of myocardial infarction or positive exercise test, current compliant of chest pain considered to be secondary to myocardia ischemia, use of nitrate therapy, or ECG with pathological Q waves; do not count prior coronary revascularization procedure unless one of the other criteria for ischemic heart disease is present): 0=No History of heart failure: 0=No History of cerebrovascular disease: 0=No Diabetes mellitus requiring treatment with insulin: 0=No Preoperative serum creatinine >2.0 mg/dL (177 micromol/L): 0=No Pt has revised cardiac index score of: No Risk Factors- 0.4% (95% CI: 0.1-0.8) Surgical Risk Assessment Patient is low medical risk for the listed procedure. PLAN AND ASSESSMENT: Preoperative general physical examination (Primary) Patient is low risk and may proceed with procedure Primary osteoarthritis of right shoulder Type 2 diabetes mellitus with hemoglobin A1c goal of less than 8.0% ([facility]) Diet controlled DDD (degenerative disc disease), lumbar Continue Celecoxib Gastroesophageal reflux disease without esophagitis Continue Famotidine History of left hip replacement Non-seasonal allergic rhinitis due to pollen Continue Fluticasone DDD (degenerative disc disease), cervical Hyperhidrosis Follow Up: Return if symptoms worsen or fail to improve. Karl Maynard DO 4:23 PM 11/21/2023 documented in this encounter Nursing Notes * Moira Atkinson LPN - 11/21/2023 9:53 AM EDT Here for pre op physical. documented in this encounter Plan of Treatment Upcoming Encounters Date Type Department Care Team (Late st Contact Info) Description 01/22/2024 1:30 PM EDT Nutrition Services Nutrition Services [address] [facility] [address] [place] [address] Suzan Gill, FABRICE [address] [facility] [place] [id number] 02/12/2024 1:00 PM EDT Office Visit Family Practice [address] [place] [address] Karl Maynard, [address] [place] [address] 07/15/2024 11:00 AM EST Nurse Only Ancillary [address] [place] [address] College, Nurse Annual Wellness Visit [address] [place] [address] Health Maintenance Due Date Last Done Comments Diabetic Eye Exam 02/14/2024 02/13/2023, , 10/17/2021, Additional history exists HbA1c 04/08/2024 10/09/2023, 05/27, 02/13/2023, Additional history exists Depression Screening 07/13/2024 07/13/2023 Albumin/Creatinine Ratio 10/09/2024 024, 10/17/2022, 10/17/2021 Diabetic Foot Exam 10/09/2024 10/09/2023, 0 10/17/2022, 10/17/2021 GFR 10/09/2024 10/09/2023, 09/28, 10/12/2021, Additional history exists DTaP,Tdap,and Td Vaccines (3 - Td or Tdap) 11/17/2025 11/18/2015, 08/17/2010 DXA Scan 01/03/2026 01/03/2021, 10/27, 11/15/2010, Additional history exists Pneumococcal Vaccine: 65+ Years Completed 05/21/2014, 12/05/2005 Zoster Vaccines Completed 02/26/2020, 01/2020, 05/27/2013 Influenza Vaccine (FLU shot) Completed 01/2023, 05/10/2022, 05/11/2021, Additional history exists COVID-19 Vaccine Completed 06/12/2023, , 12/14/2021, Additional history exists GARDASIL-HPV IMMUNIZATION SERIES Aged Out No longer eligible based on patient's age to complete this topic Hepatitis B Aged Out No longer eligi ble based on patient's age to complete this topic MENINGOCOCCAL (MENACTRA/MENVEO) Aged Out No longer eligible based on patient's age to complete this topic documented as of this encounter Medical Devices Not on filedocumented as of this encounter Visit Diagnoses Diagnosis Preoperative general physical examination- Primary Other specified pre-operative examination Primary osteoarthritis of right shoulder Primary localized osteoarthrosis, shoulder region Type 2 diabetes mellitus with hemoglobin A1c goal of less than 8.0% (HCC) DDD (degenerative disc disease), lumbar Degeneration of lumbar or lumbosacral intervertebral disc Gastroesophageal reflux disease without esophagitis Esophageal reflux History of left hip replacement Non-seasonal allergic rhinitis due to pollen DDD (degenerative disc disease), cervical Degeneration of cervical intervertebral disc Hyperhidrosis Primary focal hyperhidrosis documented in this encounter Advance Directives Documents on File Type Date Recorded Patient Content Developer Expl anation Power of Primary Montessori Teacher 04/24/2022 POWER OF A TTORNEY Care Teams Industrial Furnace Fabricator Relationship Specialty Start Date End Date Karl Maynard DO [address] [place] [address] PCP - General Internal Medicine 10/12/21 documented as of this encounter
--- OUTSIDE RECORDS SUMMARY | 2023-12-06 22:56 | External Medical Summary | Summary of Care ---
Author Name Unknown Organization [facility] Address [address] [place] [address] Phone [phone] Care Team Providers Care Control Room Agent Name Role Phone Karl Maynard DO Primary Care Provider [phone] Reason for Visit * Reason Comments Physical-Exam Pre Op exam Encounter Details Date Type Department Care Team (Latest Contact Info) Description 11/21/2023 10:00 AM EDT Office Visit Family Practice [address] [place] [address] [place] [id number] Karl Maynard DO [address] [place] [address] Preoperative general physical examination*; Primary osteoarthritis of right shoulder; Type 2 diabetes mellitus with hemoglobin A1c goal of less than 8.0% ([facility]); DDD (degenerative disc disease), lumbar; Gastroesophageal reflux [...] Supraspinatus sprain 10/16/2012 017 N10C2 Clinical Trial [id number] 02/20/2012 09/03/2013 Overview: Trial participant as of: 02/15/12 on [facility] N10C2: Double-Blinded, Placebo- Controlled Study of Magnesium Supplements to Reduce Menopausal Hot Flashes Project #: [id number] PI Name: Matt Angel MD PI CRC Name: Holly Crain CRC Contact PI or CRC regarding any serious medical event, ER visit, hospitalization, if new Rx given, or billing question N10C2 Clinical Trial [id number] 02/20/2012 10/08/2013 Overview: Renamed per the Centers for Medicare and Medicaid billing requirements to include Clinical Trial.gov number. Trial participant as of: 02/15/12 on [facility] N10C2: Double-Blinded, Placebo-Controlled Study of Magnesium Supplements to Reduce Menopausal Hot Flashes Project #: [id number] PI Name: Matt Angel MD PI CRC [...] MCG/0.3 mL, 12 YRS AND ABOVE, IM ([facility]) 06/12/2023 COVID-19, mRNA, LNP-s, PF, B ooster, [...] hemoglobin A1c goal of less than 8.0% ([facility]) E11.9 Non-seasonal allergic rhinitis due to pollen [...] hemoglobin A1c goal of less than 8.0% ([facility]) 10/17/2021 Urinary urgency 10/17/2022 Past Surgical History: Procedure Laterality Date CARPAL TUNNEL SURGERY Right 06/2021 DENTAL SURGERY PROCEDURE NEC Dental Surgery Procedure EGD, FLEXIBLE, DIAGNOSTIC 08/01/2018 tortuous esophagus, hiatal hernia/ESOPHAGOGASTRODUODENOSCOPY (EGD), FLEXIBLE, TRANSORAL, DIAGNOSTICperformed by Tez Ventura MD at ENDOSCOPY [facility] BREWING DIRECTOR PAP SCREEN 10/14/2001 benign cellular changes, satisfactory for evaluation BREWING DIRECTOR PAP SCREEN 10/10/2002 WNL MAMMOGRAM - BILATERAL 11/13/2006 birad code 2 MAMMOGRAM - BILATERAL 11/15/2007 birad code 2 MAMMOGRAM SCREENING BILATERAL 12/05/2010 normal, repeat in one year MAMMOGRAM SCREENING-BILATERAL 11/17/2008 birad code 0,additional views left breast MASTECTOMY, PARTIAL 12/28/2008 Left PM/SLNB (neg node & clearLeft PM/SLNB (neg node & clear margins) at [facility] - Dr. Delgado margins) at [facility] - Dr. Delgado PAP SCREEN 10/26/2003 negative/o jean baptiste PAP SCREEN 10/13/2004 WNL PAP SCREEN 11/10/2005 negative for lesion/satisfactory/Dr Rose PAP SCREEN 12/04/2007 satisfactory/adarsh PAP SCREEN 12/07/2009 neg/[place] PAP SCREEN 12/17/2012 neg/ Dr. Rose PAP SCREEN 12/18/2013 neg/ Dr. Rose [place] ARTHRP ACETBLR/PROX FEM PROSTC AGRFT/ALGRFT 2019 REMOVAL OF SKIN TAGS, UP TO 15 01/01/2014 The 0.4x0.3cm tumor found on the larger ellipse of skin is a seborrheic keratosis. the 0.2x0.2 cm tumor found on the smaller ellipse of skin is an acrochordon (sking tag) REMOVE CATARACT, INSERT LENS PROSTH Right 06/29/2011 right eye, [facility] REMOVE CATARACT, INSERT LENS PROSTH Left 07/12/2011 left eye, [facility] REMOVE TONSILS & ADENOIDS, UNDER 12 T & A, age<12 REPAIR RUPTURED ROTATOR CUFF, ACUTE 11/1999 Left Rotator cuff repair SACROILIAC JOINT INJECT W/GUIDANCE 05/03/2023 INJECTION SACROILIAC JOINT performed by Pepe Mercado DO at OR [facility] SHOULDER ARTHROSCOPY SURGERY Right 2017 Shoulder Surgery, Arthroscopic-Diagnostic TOTAL HIP REPLACEMENT & PROSTHESIS Left 06/2019 US GUIDED BREAST BIOPSY 12/01/2008 Left breast (IDC with DCIS) at [facility] Review of patient's allergies indicates: Allergen Reactions [...] <126 mg/dL 140 (H) Labs done at [facility] on 11/07/2023 PT and PTT are normal. UA is normal Studies done at [facility] on 11/07/2023 CXR: No acute cardiopulmonary findings ECG: NSR, low voltage, RBBB, T wave abnormality, consider inferolateral ischemia. Unchanged from 06/23/2019 Echo done at [facility] on 07/02/2019 report reviewed LV size, wall [...] hemoglobin A1c goal of less than 8.0% ([facility]) Diet controlled DDD (degenerative disc disease), lumbar [...] PM EDT Nutrition Services Nutrition Services [address] [facility] [address] [place] [address] Suzan Gill, FABRICE [address] [facility] [place] [address] 02/12/2024 1:00 PM EDT Office Visit Family Practice [address] [place] [phone] Karl Maynard, [address] [place] [address] 07/15/2024 11:00 AM EST Nurse Only Ancillary [address] [place] [address] College, Nurse Annual Wellness Visit [address] [place] [address] Health Maintenance Due Date Last Done Comments [...] Documents on File Type Date Recorded Patient Funeral Service Apprentice Expl anation Power of Manager Of Maintenance 04/24/2022 POWER OF A TTORNEY Care Teams Control Room Agent Relationship Specialty Start Date End Date Karl Maynard DO [address] [facility] [place] [address] PCP - General Internal Medicine 10/12/21 documented as of this encounter
[2023-12-07] MEDS: FAMOTIDINE 20 MG TAB PO SCH (06:23)
[2023-12-07 07:33] LABS: Basophils # (auto) 0.03 K/uL (0.00-0.20); Basophils % (auto) 0.2 %; Hematocrit (blood only) 44.6 % (37.0-47.0); Hemoglobin 14.5 g/dl (12.0-16.0); Immature Granulocytes # (auto) 0.15 K/uL (0.01-0.20); Lymphocytes # (auto) 1.18 K/uL (1.20-3.40); Lymphocytes % (auto) 8.2 %; Mean Corpuscular Hgb Conc 32.5 g/dL (32.0-36.0); Mean Corpuscular Volume 92.1 fL (80.0-100.0); Mean Platelet Volume 8.5 fL (9.4-12.4); Monocytes # (auto) 1.27 K/uL (0.11-0.59); Monocytes % (auto) 8.8 %; Neutrophils # (auto) 11.77 K/uL (1.40-6.50); Neutrophils % (auto) 81.8 %; Platelet Count 260 K/uL (130-400); RDW Coefficient of Variation 13.8 % (11.5-14.5); RDW Standard Deviation 47.1 fL (36.4-46.3); Red Blood Count 4.84 M/uL (4.20-5.40)
[2023-12-07 08:03] LABS: BUN Creatinine Ratio 20.8 (10-20); Calcium 9.3 mg/dl (8.6-10.3); Creatinine Clr Calc Pharmacy 49.9 ml/min; Est GFR (African American) 82.8 ml/min; Est GFR (Non-African American) 71.4 ml/min; Potassium 4.3 mmol/L (3.5-5.1)
[2023-12-07] MEDS ORDERED: ONDANSETRON 4 MG OD TAB PO PRN (08:14)
--- NOTE | 2023-12-07 08:20 | Orthopedic Progress Note ---
Date of Service December 07, 2023 Assessment & Plan (1) History of shoulder replacement: Plan: postop day 1 shoulder replacement plan discharge home right shoulder. After PT. Usual reverse TSA protocol home exercise program. Follow-up 2 weeks for staple removal. DC drain today Admission and Anticipated Discharge Date Admission Date: December 06, 2023 Subjective Still some numbness from the block doing well pain hebert some nausea Physical Exam Physical Exam: Dressing dry and intact, circulation sensorimotor exam intact. Results & Data Vital Signs (Past 12 Hours) Vital Signs Temp Pulse Pulse Resp BP Pulse Ox O2 Del Method 12/07/23 07:53 36.5 C 66 17 169/98 H 92 Room Air 12/07/23 03:30 36.7 C 87 18 142/88 H 94 Room Air 12/06/23 23:40 36.7 C 90 18 132/82 92 Room Air Diagnostic Findings Implants well aligned.
[2023-12-07] MEDS: VITAMIN B COMPLEX TAB PO SCH (08:32)
[2023-12-07] MEDS: FLUTICASONE PROPIONATE NA SPR 16 GM BTL SCH (08:32)
[2023-12-07] MEDS: MULTIVITAMIN TAB PO SCH (08:32)
[2023-12-07] MEDS: PNEUMOCOCCAL VACCINE (PCV20) 20-VAL CONJ-DIP CRM/PF 0.5 ML SYR IM ONE (08:56)
[2023-12-07] MEDS ORDERED: SODIUM BICARBONATE SCH (09:00)
[2023-12-07] MEDS ORDERED: NON-FORMULARY MEDICATION (Glucosamine-Chondroitin [Osteo Bi-Flex] 250-200 mg tablet) PO SCH (09:00)
[2023-12-07] MEDS ORDERED: SODIUM CHLORIDE SCH (09:00)
[2023-12-07] MEDS ORDERED: NON-FORMULARY MEDICATION (Flaxseed Oil 1,000 mg capsule) PO SCH (09:00)
[2023-12-07] MEDS ORDERED: [UNRECOGNIZED DRUG - OTHER] SCH (09:00)
== END 2023-12-07 11:50 | disposition home or self-care (01) ==
LOC: 3N 09:00 → ASU 09:00